=== PATIENT | male | born 1955 | race Caucasian/White ===

== ENCOUNTER → 2019-12-29 10:08 | Outpatient (BNVA) | payer OTHER, SELFPAY | PROVIDERS: Family Provider Nurse Practitioner; PCP Nurse Practitioner; Referring Provider Nurse Practitioner; Visit Provider Specialist | DX: G43.711 Chronic migraine without aura, intractable, with status migrainosus (principal); Z87.891 Personal history of nicotine dependence | CPT/HCPCS: 64615; 99203; J0585 ==

== ENCOUNTER → 2020-03-22 10:37 | Outpatient (BNVA) | payer OTHER, SELFPAY | PROVIDERS: Family Provider Nurse Practitioner; PCP Nurse Practitioner; Visit Provider Specialist | DX: G43.711 Chronic migraine without aura, intractable, with status migrainosus (principal); Z87.891 Personal history of nicotine dependence | CPT/HCPCS: 64615; J0585 ==

== ENCOUNTER → 2020-06-21 07:45 | Outpatient (BNVA) | payer OTHER, SELFPAY | PROVIDERS: Family Provider Nurse Practitioner; PCP Nurse Practitioner; Visit Provider Specialist | DX: G43.711 Chronic migraine without aura, intractable, with status migrainosus (principal) | CPT/HCPCS: 64615; J0585 ==

== ENCOUNTER → 2020-09-13 08:04 | Outpatient (BNVA) | payer OTHER, SELFPAY | PROVIDERS: PCP Nurse Practitioner; Visit Provider Specialist | DX: G43.711 Chronic migraine without aura, intractable, with status migrainosus (principal); I65.23 Occlusion and stenosis of bilateral carotid arteries; Z87.891 Personal history of nicotine dependence | CPT/HCPCS: 64615; J0585 ==

== ENCOUNTER → 2020-12-06 08:04 | Outpatient (BNVA) | payer OTHER, SELFPAY | PROVIDERS: PCP Nurse Practitioner; Visit Provider Specialist | DX: G43.711 Chronic migraine without aura, intractable, with status migrainosus (principal); I65.23 Occlusion and stenosis of bilateral carotid arteries; Z87.891 Personal history of nicotine dependence | CPT/HCPCS: 64615; 99212; 99213; J0585 ==

== ENCOUNTER 2021-08-01 19:19 | Emergency (ER) | payer OTHER, SELFPAY ==
--- NOTE | 2021-08-01 19:22 | ECG_ITS ---
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 Measurements Intervals [place] Rate: 92 P: 51 CO: 173 QRS: -3 QRSD: 89 T: 12 QT: 328 QTc: 406 Interpretive Statements SINUS RHYTHM WITH FREQUENT SUPRAVENTRICULAR PREMATURE COMPLEXES MINIMAL VOLTAGE CRITERIA FOR LVH, CONSIDER NORMAL VARIANT [MEETS CRITERIA IN ONE OF: R(aVL), S(V1), R(V5), R(V5/V6)+S(V1)] ABNORMAL RHYTHM ECG No previous ECG available for comparison Electronically Signed On 08-01-2021 20:38:20 CDT by Daina Carter M.D. [id number]
--- NOTE | 2021-08-01 19:22 | XRR_ITS ---
PROCEDURE INFORMATION: Exam: XR Chest Exam date and time: 08/01/2021 7:22 PM Age: 66 years old Clinical indication: Sternal or substernal pain; Prior surgery; Surgery type: Chest tube; Additional info: Cp TECHNIQUE: Imaging protocol: XR of the chest. Views: 1 view. Total images: 1 COMPARISON: No relevant prior studies available. FINDINGS: Lungs: No visible active interstitial or alveolar airspace disease. Pleural spaces: Unremarkable. No pleural effusion. No pneumothorax. Heart/Mediastinum: Cardiac structures and configuration within normal limits for age. Bones/joints: Unremarkable. XR/XR chest 1V portable [id number] IMPRESSION: Nonacute.
[2021-08-01 19:44] VITALS: BP 177/82; PULSE 81; RESP 20; TEMP 36.7; O2SAT 96; BMI 27.9
[2021-08-01] MEDS: aspirin 325 mg Tablet PO (20:22)
[2021-08-01 20:42] LABS: Basophils # 0.1 10^3/uL (0.0-0.1); Basophils % 0.7 %; Eosinophils # 0.1 10^3/uL (0.0-0.8); Eosinophils % 1.4 %; Hematocrit 41.8 % (42.0-52.0); Lymphocytes # 1.4 10^3/uL (0.8-4.8); Lymphocytes % 14.8 %; Mean Corpuscular HGB Conc 33.5 g/dL (30.0-36.0); Mean Corpuscular Hemoglobin 31.7 pg (28.0-34.0); Mean Corpuscular Volume 94.6 fl (80-94); Mean Platelet Volume 11.2 fL (7.4-10.4); Monocytes # 0.6 10^3/uL (0.2-0.9); Monocytes % 6.3 %; Neutrophils # 7.44 10^3/uL (1.8-7.7); Neutrophils % 76.6 %; Nucleated Red Blood Cells % 0 %; Platelet Count 190 10^3/cmm (130-400); Red Blood Count 4.42 10^6/uL (4.1-5.3); Red Cell Distribution Width 13.3 % (12.1-15.1); White Blood Count 9.7 10^3/uL (4.0-10.0)
--- NOTE | 2021-08-01 20:46 | W.ED.GENADLT ---
HPI - General Adult General: Chief complaint: Chest Pain Stated complaint: chest pain,sob, tingling left arm Time Seen by Provider: 08/01/21 19:42 History of Present Illness: HPI narrative: Patient is a 66-year-old male with history of hypertension, bilateral carotid stenosis who presents the emergency room for evaluation of persistent palpitation x2 to 3 days now shortness of breath at rest and tingling in the left arm x45 minutes. Patient says that for the last 2 days, she has had intermittent heart beat skips. In addition, since 1 hour ago she has had shortness of breath. Patient says that the shortness breath is worse with exertion. Denies any chest pain, back pain, abdominal pain, nausea/vomiting, throat pain or jaw pain. Patient said that she has some left-sided arm tingling in addition. Denies any abdominal complaints, fever/chills, nausea/vomiting, pleuritic chest pain, risk factors for VTE, complaints, melena/hematochezia at this time. Of note, patient tells me that a few years ago he underwent a cardiac evaluation which showed that he has a hole in his heart. He has not had any formal evaluation with Dr. Raul Lama. Denies any active chest pain today or previously. Onset: 2 days ago Duration:2 days Location:home Severity:moderate/severe Review of Systems Narrative: Constitutional: No fever, no chills. HEENT: No vision changes CV: No chest pain, +palpitations PULM: no cough, +dyspnea. GI: No abdominal pain, no N/V/D. : No dysuria MSKEL: No muscle pain SKIN: No new rashes, no lesions. NEURO: No headache, no focal weakness. HEME: No visible bruises PSYCH: Normal mood PFS ED PFSH: Medical History (Updated 08/01/21 @ 20:49 by Gi Michael MD) Anxiety Benign essential hypertension with target blood pressure below 140/90 Bilateral carotid artery stenosis BPH (benign prostatic hyperplasia) GERD (gastroesophageal reflux disease) Hyperlipidemia Insomnia Palpitations Surgical History H/O hernia repair Family History Other Hypertension Denies family history of Diabetes CAD (coronary artery disease) Cancer Stroke Social History Smoking and tobacco status: former smoker Quit status (tobacco): has quit using tobacco Year quit tobacco: 1999 Alcohol intake: never History of recent travel: No Physical Exam Narrative: EXAM NARRATIVE: Head: Atraumatic Eyes: PERRL, conjunctiva without injection ENT: Mucous membrane moist NECK: Supple, ROM intact LUNGS: LCTAB, no crackles/rhonchi CV: RRR ABDOMEN: Soft, nontender in all quadrants EXTREMITY: Normal ROM SKIN: No rash or erythema NEURO: Awake and alert, no focal motor deficits PSYCH: Normal mood and affect Course Vital Signs: Vital signs: Vital Signs Temperature 98.1 F 08/01/21 19:44 Pulse Rate 98 08/01/21 22:50 Respiratory Rate 79 H 08/01/21 22:50 Blood Pressure 137/79 08/01/21 22:50 Pulse Oximetry 98 08/01/21 22:50 MDM - General Adult MDM Narrative: Medical decision making narrative: 58-year-old patient with history of hypertension, carotid stenosis who presents the emergency room for evaluation of dyspnea x1 hour at rest and in setting of palpitations x2 days. On exam patient is hemodynamically stable. No focal findings. Currently chest pain-free. No Covid symptoms. EKG showing regular sinus rhythm at HT of [92]. Normal axis. No ST elevations/depressions to suggest coronary occlusion. Normal VA, QRS, QT intervals. +occasional PACs. Given age, risk factors, heart score 4, have no prior cardiac evaluation, palpitation, new onset of shortness breath, patient will be mated to hospital for ACS work-up. S/p aspirin. No focal complaints of chest pain. No dysrhythmia on phototypesetting equipment monitor. Shortly after 10:30 p.m., shortly after patient was admitted to the hospital, patient was concerned about his insurance status. Patient obtains most of his care care at the [facility] and is unsure whether insurance would cover this observation stay. Patient tells me that this time, he would like to leave AGAINST MEDICAL ADVICE. Patient electing to leave AMA. Patient counseled regarding risks of leaving including severe morbidity, brain , hypoxia, arrythmia, , chest pain, or any other unwanted consequences of leaving against medical advice today. Patient verbalizes understanding of the risks and still wishes to leave AMA. Signed AMA paperwork. Patient advised that patient is welcome to return at any time. Was instructed that patient may come back if symptoms continue to persist and that emergent adverse conditions have not fully been ruled out. Patient is A&Ox3 and has capacity and is of sound mind to make decisions. Lab Data: Labs: Lab Results 08/01/21 08/01/21 08/01/21 20:28 20:28 20:28 WBC 9.7 10^3/uL 10^3/ uL (4.0-10.0) RBC 4.42 10^6/uL 10^6 /uL (4.1-5.3) Hgb 14.0 g/dL g/dL (11.7-16.6) Hct 41.8 % L % (42.0-52.0) MCV 94.6 fl H fl (80-94) MCH 31.7 pg pg (28.0-34.0) MCHC 33.5 g/dL g/dL (30.0-36.0) RDW 13.3 % % (12.1-15.1) Plt Count 190 10^3/cmm 10^3 /cmm (130-400) MPV 11.2 fL H fL (7.4-10.4) Neut % (Auto) 76.6 % % Lymph % (Auto) 14.8 % % [place] % (Auto) 6.3 % % Eos % (Auto) 1.4 % % Baso % (Auto) 0.7 % % Neut # (Auto) 7.44 10^3/uL 10^3 /uL (1.8-7.7) Lymph # (Auto) 1.4 10^3/uL 10^3/ uL (0.8-4.8) [place] # (Auto) 0.6 10^3/uL 10^3/ uL (0.2-0.9) Eos # (Auto) 0.1 10^3/uL 10^3/ uL (0.0-0.8) Baso # (Auto) 0.1 10^3/uL 10^3/ uL (0.0-0.1) Nucleated RBC % (a uto) 0 % % Nucleated RBCs # 0.0 /100WBC /100W BC Sodium 140 mmol/L mmol/L (136-145) Potassium 4.0 mmol/L mmol/L (3.5-5.1) Chloride 106 mmol/L mmol/L (98-107) Carbon Dioxide 23 mmol/L mmol/L (22-29) Anion Gap 15.0 (5-19) BUN 17 mg/dL mg/dL (8-23) Creatinine 1.2 mg/dL mg/dL (0.7-1.2) GFR Calculation 60.2 mL/min L mL/ min (90-130) Glucose 99 mg/dL mg/dL (65-115) Calculated Osmolal ity 292 mOsm/kg mOsm/ kg (285-295) Calcium 9.1 mg/dL mg/dL (8.5-10.5) Magnesium 1.7 mg/dL mg/dL (1.7-2.3) Total Bilirubin 0.3 mg/dL mg/dL (0.15-1.2) AST 18 U/L U/L (0-40) ALT 23 U/L U/L (0-41) Alkaline Phosphata se 79 IU/L IU/L (40-130) Troponin T Baselin e 9 ng/L ng/L (0-15) Troponin T 120 Min susan Delta Troponin T NT-Pro-B Natriuret Pep 365 pg/mL H pg/mL (0-125) Total Protein 6.6 g/dL g/dL (6.6-8.7) Albumin 4.0 g/dL g/dL (3.5-5.2) Globulin 2.6 g/dL g/dL (1.3-4.6) 08/01/21 22:17 WBC RBC Hgb Hct MCV MCH MCHC RDW Plt Count MPV Neut % (Auto) Lymph % (Auto) [place] % (Auto) Eos % (Auto) Baso % (Auto) Neut # (Auto) Lymph # (Auto) [place] # (Auto) Eos # (Auto) Baso # (Auto) Nucleated RBC % (a uto) Nucleated RBCs # Sodium Potassium Chloride Carbon Dioxide Anion Gap BUN Creatinine GFR Calculation Glucose Calculated Osmolal ity Calcium Magnesium Total Bilirubin AST ALT Alkaline Phosphata se Troponin T Baselin e Troponin T 120 Min susan 8.33 ng/L ng/L (0-15) Delta Troponin T -0.67 ABS# L ABS# (0-10) NT-Pro-B Natriuret Pep Total Protein Albumin Globulin Discharge Plan Discharge Patient Disposition: Left Against Medical Advice Clinical Impression: Acute dyspnea, Palpitations Condition: Stable Prescriptions: No Action atorvastatin 40 mg tablet 40 mg PO DAILY RF: 0 omeprazole 20 mg capsule,delayed release(DR/EC) 20 mg PO DAILY RF: 0 terazosin 10 mg capsule 10 mg PO DAILY RF: 0 omega-3 fatty acids [Fish Oil Concentrate] 1,000 mg capsule 4,000 mg PO DAILY RF: 0 multivitamin Capsule 1 cap PO DAILY RF: 0 aspirin [Aspir-81] 81 mg tablet,delayed release (DR/EC) 81 mg PO DAILY RF: 0 vitamin B complex Capsule 1 cap PO DAILY RF: 0 metoprolol tartrate 100 mg tablet 100 mg PO BID Qty: 180 RF: 3 Discharge Orders: Discharge ED (Routine); Ordered 08/01/21 Ordered By: Gi Michael Referrals: Leeanna Mehta FNP [Primary Care Provider] - Discharge Diet: Advance as tolerated Discharge Activity: Resume usual activity Patient Instructions: Dyspnea (ED) Activity Restrictions/Additional Instructions: Our continuous pillowcase cutter will have you follow-up with Dr. Carter tomorrow. You would be expected to have a phone call with our continuous pillowcase cutter who will put you on the schedule. Come back to the emergency room if your symptoms worsen. Coding Level of Care Code ED Finished Goods Planner for Jermaine Hays
[2021-08-01 21:09] LABS: Troponin(5th) Baseline 9 ng/L (0-15)
[2021-08-01 21:18] LABS: Alanine Aminotransferase 23 U/L (0-41); Alkaline Phosphatase 79 IU/L (40-130); Aspartate Amino Transferase 18 U/L (0-40); Blood Urea Nitrogen 17 mg/dL (8-23); Calcium 9.1 mg/dL (8.5-10.5); Carbon Dioxide 23 mmol/L (22-29); Chloride 106 mmol/L (98-107); Creatinine Clr Calc Pharmacy 65.9837; Globulin 2.6 g/dL (1.3-4.6); Glomerular Filtration Rate 60.2 mL/min (90-130); Glucose 99 mg/dL (65-115); Magnesium 1.7 mg/dL (1.7-2.3); NT Pro B Type Natriuretic Pept 365 pg/mL (0-125); Osmolality Calculated 292 mOsm/kg (285-295); Sodium 140 mmol/L (136-145); Total Bilirubin 0.3 mg/dL (0.15-1.2); Total Protein 6.6 g/dL (6.6-8.7)
--- NOTE | 2021-08-01 21:22 | ECG_ITS ---
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
[2021-08-01 22:30] VITALS: BP 140/78; PULSE 79; RESP 18; O2SAT 97
[2021-08-01 22:42] LABS: Troponin 5 2HR 8.33 ng/L (0-15)
[2021-08-01 22:46] LABS: Troponin 5 2HR Delta -0.67 ABS# (0-10)
[2021-08-01 22:50] VITALS: BP 137/79; PULSE 98; RESP 79; O2SAT 98
--- NOTE | 2021-08-02 09:46 | DCPLANNER ---
Addendum entered by Selena Craig 11/28/21 17:27: Patient had a follow up appointment scheduled with [facility] - patient did attend appointment. Original Note: global account manager had message to schedule a follow up appointment for patient with [facility] care. global account manager called heart care, spoke with Nerissa, gave clinic patients information. A follow up appointment was scheduled for , August 08, 2021 at 11:[address] Carter. global account manager called patient and gave him the appointment information. Patient has [facility] insurance, onsite case manager sent patients information to February with [employer] [facility], so that the authorization process could be started.
== END 2021-08-01 22:50 | disposition left against medical advice (07) ==
LOC: ER 20:49 → MEDSURG 22:34
PROVIDERS: Emergency Medicine; Emergency Provider Emergency Medicine; PCP Nurse Practitioner
DX: R00.2 Palpitations (principal); R06.00 Dyspnea, unspecified; Z53.21 Procedure and treatment not carried out due to patient leaving prior to being seen by health care provider; Z79.82 Long term (current) use of aspirin; I10 Essential (primary) hypertension; E78.5 Hyperlipidemia, unspecified; Z87.891 Personal history of nicotine dependence
CPT/HCPCS: 36415; 71045; 80053; 83735; 83880; 84484; 85025; 93005; 99284

== ENCOUNTER 2022-01-10 07:17 | Outpatient (CLI) | payer OTHER, SELFPAY ==
--- NOTE | 2022-01-10 08:00 | USCV_ITS ---
Cassius Thomas Age: 66 Gender: M : 1955 Exam Date: 01/10/2022 07:34 Ordering Phys: Daina Carter MD ([email or web address]) Technologist: LISA [place] [facility] [place]: DISORDER OF ARTERIES AND ARTERIOLES Risk Factors: Previous Vascular Surgery: Right Brachial BP: / Left Brachial BP: / Right Left Velocity (cm/s) Spectral Plaque Velocity (cm/s) Spectral Plaque Syst/Diast Broadening Syst/Diast Broadening 72.80/ 13.20 Prox CCA 87.00 / 20.00 56.20/ 13.20 Mid CCA 63.40 / 15.30 43.30/ 9.60 Distal CCA 63.20 / 12.50 60.35/ 17.00 Prox ICA 43.70 / 12.50 64.20/ 19.90 Mid ICA 58.30 / 15.30 64.90/ 23.70 Distal ICA 40.20 / 13.20 33.30 ECA 52.00 1.15 ICA/CCA 0.92 Antegrade Vertebral Bi- directiona l 72.60/ 19.90 cm/s 19.60/ 20.20 cm/s Bi Subclavian Bi 104.6 58.70 0 FINDINGS Mild to moderate plaques at the bifurcations bilaterally. Intimal thickening in the common carotid arteries bilaterally. 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 Mild to moderate plaques at the bifurcations and proximal internal carotid arteries bilaterally, suggestive of less than 50% stenosis. Compared to the study from 07/20/2019, there may not be a significant change Consider CTA, to better evaluate the proximal subclavian artery on the left side Dr Daina Carter MD [facility] (Electronically Signed) Final Date: 10 January 2022 11:15 S
== END 2022-01-10 07:18 | disposition home or self-care (01) ==
PROVIDERS: PCP Nurse Practitioner; Visit Provider Internal Medicine Cardiovascular Disease
DX: I65.23 Occlusion and stenosis of bilateral carotid arteries (principal); I77.9 Disorder of arteries and arterioles, unspecified
CPT/HCPCS: 93880

== ENCOUNTER 2022-02-07 12:29 | Outpatient (CLI) | payer OTHER, SELFPAY ==
--- NOTE | 2022-02-07 13:00 | CT_ITS ---
WS: [id number] Exam: CT angio headne* [id number] Date/Time of Exam: 02/07/2022 12:41 PM Reason For Exam: subclavian arterial stenosis DLP: 536.[address] scans at [facility] use at least one of these dose optimization techniques: automated e xposure control; mA and/or kV adjustment per patient size (includes targeted exams where dose is matc hed to clinical indication); or iterative reconstruction. CT angiography of the head and neck is performed in the axial plane with sagittal and coronal reforma tted images. CT angiography of the neck. The right and left common carotid arteries are widely patent. The extracr anial internal carotid arteries are patent without significant stenosis or occlusion. There is mild c alcified plaquing at both bifurcations but no flow compromise. No sign of aneurysm or dissection. CT images of the neck show no mass or lymphadenopathy. Advanced emphysematous changes visualized in t he upper lung zones. The great vessels are patent at the level of the aortic arch. The airway is fitzgerald nt. Normal thyroid tissue. Degenerative changes of the cervical spine. CT/CT angio headne* [id number] IMPRESSION: 1. The right and left common and extracranial internal carotid arteries are pat ent without critical stenosis or occlusion. No aneurysm or dissection. CT angiography of the head. The intracranial internal carotid arteries are wide ly patent. The middle, anterior and posterior cerebral arteries are also patent . No critical stenosis or occlusion. No aneurysm. The bilateral vertebral arter ies are patent. CT images of the brain demonstrate no mass or acute bleed. The ventricles and b elaine cisterns are normal in size. The skull is intact. IMPRESSION: 1. The intracranial internal carotid arteries and major branches are patent. No critical stenosis or occlusion. No aneurysm.
[2022-02-07] MEDS: iohexol 350 mg/mL 100 mL Btl IV (13:34)
[2022-02-07 13:42] LABS: Blood Urea Nitrogen 15 mg/dL (8-23); Glomerular Filtration Rate 66.6 mL/min (90-130)
== END 2022-02-07 12:30 | disposition home or self-care (01) ==
LOC: RAD 12:30
PROVIDERS: PCP Nurse Practitioner; Visit Provider Internal Medicine Cardiovascular Disease
DX: Z01.812 Encounter for preprocedural laboratory examination (principal); I70.8 Atherosclerosis of other arteries; I77.1 Stricture of artery
CPT/HCPCS: 70496; 70498; 82565; 84520

== ENCOUNTER → 2022-05-27 11:01 | Outpatient (BNVA) | payer OTHER, SELFPAY | PROVIDERS: PCP Nurse Practitioner; Visit Provider Internal Medicine Cardiovascular Disease | DX: I48.91 Unspecified atrial fibrillation (principal); I10 Essential (primary) hypertension; I65.23 Occlusion and stenosis of bilateral carotid arteries; E78.2 Mixed hyperlipidemia; Z87.891 Personal history of nicotine dependence | CPT/HCPCS: 99214 ==

== ENCOUNTER → 2022-12-02 10:42 | Outpatient (BNVA) | payer OTHER, SELFPAY | PROVIDERS: PCP Nurse Practitioner; Visit Provider Nurse Practitioner Family | DX: I48.91 Unspecified atrial fibrillation (principal); I10 Essential (primary) hypertension; Z87.891 Personal history of nicotine dependence; Z79.01 Long term (current) use of anticoagulants | CPT/HCPCS: 99214 ==

== ENCOUNTER → 2023-06-08 14:29 | Outpatient (BNVA) | payer OTHER, SELFPAY | PROVIDERS: PCP Nurse Practitioner; Visit Provider Internal Medicine Cardiovascular Disease | DX: R07.9 Chest pain, unspecified (principal); I48.91 Unspecified atrial fibrillation; I10 Essential (primary) hypertension; I65.23 Occlusion and stenosis of bilateral carotid arteries; E78.2 Mixed hyperlipidemia; I70.8 Atherosclerosis of other arteries | CPT/HCPCS: 93005; 99214 ==

== ENCOUNTER 2023-07-27 07:10 | Observation (INO) | payer OTHER, SELFPAY ==
[2023-07-27] VITALS (14 sets, daily range): BP systolic 125–166; BP diastolic 84–110; PULSE 87–113; RESP 13–27; TEMP 36.6–37; O2SAT 94–98; BMI 26.3
--- NOTE | 2023-07-27 07:12 | XR_ITS ---
WS: [id number] XR chest 1V portable [id number] REASON FOR EXAM: cp FINDINGS: The chest is unchanged compared to 07/27/2023. Mild to moderate tortuosity and ectasia of the thoracic aorta. The heart is at the upper limits of no rmal in size. Chronic reticular interstitial lung opacities in both lower lung hurtado. Calcified granulomatous disease bilaterally. No acute pulmonary parenchymal or pleural abnormality is identified. IMPRESSION: Stable chest without acute abnormality.
--- NOTE | 2023-07-27 07:15 | ECG_ITS ---
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 Measurements Intervals [place] Rate: 112 P: 0 IN: 0 QRS: 51 QRSD: 77 T: 38 QT: 293 QTc: 400 Interpretive Statements ATRIAL FIBRILLATION WITH RAPID VENTRICULAR RESPONSE ABNORMAL RHYTHM ECG Compared to ECG 06/08/2023 14:36:40 No significant changes Electronically Signed On 07-27-2023 9:17:00 CDT by Bharti Horton M.D. [id number]
[2023-07-27 07:30] LABS: Basophils # 0.1 10^3/uL (0.0-0.1); Basophils % 0.4 %; Eosinophils # 0.1 10^3/uL (0.0-0.8); Eosinophils % 0.4 %; Hematocrit 43.1 % (37-53); Lymphocytes # 1.7 10^3/uL (0.8-4.8); Lymphocytes % 12.6 %; Mean Corpuscular HGB Conc 32.9 g/dL (30-55); Mean Corpuscular Hemoglobin 31.6 pg (27-33); Mean Corpuscular Volume 95.8 fl (82-101); Mean Platelet Volume 10.8 fL (7.4-10.4); Monocytes # 0.5 10^3/uL (0.2-0.9); Monocytes % 3.9 %; Neutrophils # 11.25 10^3/uL (1.8-7.7); Neutrophils % 82.2 %; Nucleated Red Blood Cells % 0 %; Platelet Count 201 10^3/cmm (157-399); Red Cell Distribution Width 14.2 % (12.1-15.1)
--- NOTE | 2023-07-27 07:32 | ED_ITS ---
HPI - SOB/Dyspnea General: Chief Complaint: Shortness of Breath/Dyspnea Stated Complaint: sob, chest tightness Time Seen by Provider: 07/27/23 07:12 Source: patient Mode of arrival: ambulatory Limitations: no limitations History of Present Illness: HPI Narrative: 68-year-old male he does have a history of A-fib he states he woke up melanite having some pressure in his chest along with shortness of breath he is in A-fib with RVR here with heart rates in the 110s he states he takes metoprolol did take it this morning. States he gets the symptoms at times when his heart rate spikes up. States his pain is actually improved he denies any cough or fever. Associated symptoms: Reports chest pain and palpitations; Deny abdominal pain, fever(s), nausea or vomiting Review of Systems Const: Denies: fever(s) or chills ENMT: Denies: throat pain or dental pain Card: Reports: chest pain, palpitations and irregular heart rhythm Resp: Reports: dyspnea GI: Denies: abdominal pain, nausea, vomiting or diarrhea : Denies: dysuria Musc: Denies: neck pain or back pain Skin/Breast: Denies: rash Neuro: Denies: headache(s) PFSH ED PFSH: Medical History (Updated 07/27/23 @ 09:08 by Jalyn Broussard MD) Anxiety Atrial fibrillation Benign essential hypertension with target blood pressure below 140/90 Bilateral carotid artery stenosis BPH (benign prostatic hyperplasia) GERD (gastroesophageal reflux disease) Hyperlipidemia Insomnia Palpitations Surgical History H/O hernia repair Family History Sister Cancer Other Hypertension Denies family history of Diabetes CAD (coronary artery disease) Clotting disorder Dementia Chronic kidney disease (CKD) Suicide Anesthesia complication Bleeding disorder Lung disease Stroke Social History (Updated 07/27/23 @ 08:55 by Cameron Rosado MD) Smoking and tobacco status: former smoker Quit status (tobacco): has quit using tobacco Year quit tobacco: 1999 Alcohol intake: never Substance/Drug Use: current Substance/Drug use type: Marijuana Physical Exam Const: COMMON NORMALS: patient oriented x3 HENMT: COMMON NORMALS: normocephalic and atraumatic HEAD & SCALP: normocephalic and atraumatic Neck/C-Spine: COMMON NORMALS: full ROM and supple Chest: COMMONS NORMALS: normal inspection of the chest and normal palpation of entire chest wall Resp: COMMON NORMALS: normal respiratory effort, No retractions, No use of accessory muscles and clear to auscultation bilaterally AUSCULTATION: clear to auscultation bilaterally Cardio: COMMON NORMALS: No murmurs present (Cardio) RATE: tachycardic RHYTHM: abnormal rhythm irregularly irregular GI: COMMON NORMALS: Normal to inspection, nondistended, normoactive bowel sounds present, Soft to palpation, non-tender and no masses PALPATION: Yes Soft to palpation Extremity: COMMON NORMALS: normal to inspection and full ROM Neuro: COMMON NORMALS: patient oriented x3, moves all extremities and no focal motor deficits Psych: COMMON NORMALS: mental status grossly normal, Normal thought process present and cooperative THOUGHT PROCESS: Normal thought process present Skin: COMMON NORMALS: no rashes or lesions noted and no wounds GENERAL SKIN EXAM: no rashes or lesions noted Course Vital Signs: Vital signs: Vital Signs Temperature 97.8 F 07/27/23 07:17 Pulse Rate 112 H 07/27/23 08:45 Respiratory Rate 17 07/27/23 08:30 Blood Pressure 157/101 07/27/23 08:45 Pulse Oximetry 95 07/27/23 08:30 Oxygen Delivery Me thod Room Air 07/27/23 08:08 MDM - SOB/Dyspnea Medical Decision Making Patient presents with chest pain and also A-fib with RVR his heart rate has improved after IV Cardizem but still having some heart rates over 100 BNP is mildly elevated his troponin here is normal I spoke to hospitalist will admit for observation we will start Cardizem p.o. at this time. Medical Records I reviewed the patient's medical records. Lab Data I reviewed the patient's lab results. 07/27/23 07:22 07/27/23 07:22 Labs/Radiology: Laboratory Results WBC 13.70 10^3/uL (3.29-11.43) H 07/27/23 07:22 RBC 4.50 10^6/uL (3.85-5.65) 07/27/23 07:22 Hgb 14.20 g/dL (11.27-16.99) 07/27/23 07:22 Hct 43.1 % (37-53) 07/27/23 07:22 MCV 95.8 fl (82-101) 07/27/23 07:22 MCH 31.6 pg (27-33) 07/27/23 07:22 MCHC 32.9 g/dL (30-55) 07/27/23 07:22 RDW 14.2 % (12.1-15.1) 07/27/23 07:22 Plt Count 201 10^3/cmm (157-399) 07/27/23 07:22 MPV 10.8 fL (7.4-10.4) H 07/27/23 07:22 Neut % (Auto) 82.2 % 07/27/23 07:22 Lymph % (Auto) 12.6 % 07/27/23 07:22 [place] % (Auto) 3.9 % 07/27/23 07:22 Eos % (Auto) 0.4 % 07/27/23 07:22 Baso % (Auto) 0.4 % 07/27/23 07:22 Neut # (Auto) 11.25 10^3/uL (1.8-7.7) H 07/27/23 07:22 Lymph # (Auto) 1.7 10^3/uL (0.8-4.8) 07/27/23 07:22 [place] # (Auto) 0.5 10^3/uL (0.2-0.9) 07/27/23 07:22 Eos # (Auto) 0.1 10^3/uL (0.0-0.8) 07/27/23 07:22 Baso # (Auto) 0.1 10^3/uL (0.0-0.1) 07/27/23 07:22 Nucleated RBC % (auto) 0 % 07/27/23 07: Nucleated RBCs # 0.0 /100WBC 07/27/23 07:22 PT 16.70 SECONDS (12.1-14.9) H 07/27/23 07:22 INR 1.30 (0.8-1.2) H 07/27/23 07:22 D-Dimer 0.42 ug/mLFEU (0-0.59) 07/27/23 07:22 Sodium 142 mmol/L (136-145) 07/27/23 07:22 Potassium 4.0 mmol/L (3.5-5.1) 07/27/23 07:22 Chloride 107 mmol/L (98-107) 07/27/23 07:22 Carbon Dioxide 23 mmol/L (22-29) 07/27/23 07:22 Anion Gap 16.0 (5-19) 07/27/23 07:22 BUN 13 mg/dL (8-23) 07/27/23 07:22 Creatinine 0.9 mg/dL (0.7-1.2) 07/27/23 07:22 GFR Calculation 83.4 mL/min (90-130) L 07/27/23 07:22 Glucose 159 mg/dL (65-115) H 07/27/23 07:22 Calculated Osmolality 297 mOsm/kg (285-295) H 07/27/23 07:22 Calcium 9.3 mg/dL (8.5-10.5) 07/27/23 07:22 Total Bilirubin 0.7 mg/dL (0.15-1.2) 07/27/23 07:22 AST 37 U/L (0-40) 07/27/23 07:22 ALT 56 U/L (0-41) H 07/27/23 07:22 Alkaline Phosphatase 106 U/L (40-130) 07/27/23 07:22 Troponin T Baseline 11 ng/L (0-15) 07/27/23 07:22 NT-Pro-B Natriuret Pep 1996 pg/mL (0-125) H 07/27/23 07:22 Total Protein 6.8 g/dL (6.6-8.7) 07/27/23 07:22 Albumin 4.6 g/dL (3.5-5.2) 07/27/23 07:22 Globulin 2.2 g/dL (1.3-4.6) 07/27/23 07:22 All radiology interpretation(s) finalized by discharge EKG Data EKG 1: I personally reviewed and interpreted this EKG as follows: EKG Interpretation Date: 07/27/23 EKG interpretation time: 07:15 Interpretation: afib hr [address] or t wave abnormalities qrs 77 qtc 359 Discharge Plan Discharge Patient Disposition: Placed in Observation Clinical Impression: Atrial fibrillation with rapid ventricular response, Chest pain Condition: Stable Prescriptions: No Action omeprazole 20 mg capsule,delayed release(DR/EC) 20 mg PO QAM tamsulosin 0.4 mg capsule 0.8 mg PO BEDTIME hydralazine 100 mg tablet 100 mg PO BID Qty: 180 3RF Eliquis 5 mg tablet 5 mg PO BID Qty: 180 3RF multivitamin Tablet 1 tab PO QAM Tylenol Ex Str Rapid Release 500 mg Tablet 500 mg PO BID vitamin B complex Tablet 1 tab PO QAM metoprolol tartrate 100 mg tablet See Rx Instructions .ROUTE .COMPLEX Rx Instructions: 150mg (1&1/2 tab) po in the am and 100mg (1 tab) po bedtime Lipitor 80 mg Tablet 40 mg PO BEDTIME Referrals: Leeanna Mehta FNP [Primary Care Provider] - Coding Level of Care Code ED Car Repairer Helper for Jermaine Hays
[2023-07-27 07:49] LABS: D Dimer 0.42 ug/mLFEU (0-0.59)
[2023-07-27 07:51] LABS: Troponin(5th) Baseline 11 ng/L (0-15)
[2023-07-27] MEDS: dilTIAZem 5 mg/mL SDV 5 mL 15 MG IVP (07:52)
[2023-07-27 08:01] LABS: Alanine Aminotransferase 56 U/L (0-41); Albumin Level 4.6 g/dL (3.5-5.2); Alkaline Phosphatase 106 U/L (40-130); Aspartate Amino Transferase 37 U/L (0-40); Blood Urea Nitrogen 13 mg/dL (8-23); Calcium 9.3 mg/dL (8.5-10.5); Carbon Dioxide 23 mmol/L (22-29); Chloride 107 mmol/L (98-107); Globulin 2.2 g/dL (1.3-4.6); Glomerular Filtration Rate 83.4 mL/min (90-130); Glucose 159 mg/dL (65-115); NT Pro B Type Natriuretic Pept 1996 pg/mL (0-125); Osmolality Calculated 297 mOsm/kg (285-295); Sodium 142 mmol/L (136-145); Total Bilirubin 0.7 mg/dL (0.15-1.2); Total Protein 6.8 g/dL (6.6-8.7)
--- NOTE | 2023-07-27 08:01 | PC.PHAR ---
Addendum entered by Zunilda Kelsey 07/27/23 10:24: [facility] 80[facility] take 40mg daily Original Note: pt states he takes care of his own medications-pt states [facility]-pt verified all his medications except wasnt completely sure on the lipitor states 40mg sounds right-waiting for [facility] to fax med list back to verify-
[2023-07-27] MEDS: dilTIAZem 30 mg Tablet PO ×3 (08:20→16:48)
--- NOTE | 2023-07-27 08:45 | P.HP_ITS ---
Providers/Chief Complaint Admitting Physician: Cameron Rosado MD Primary Care Provider: KAM Murillo Chief Complaint: sob, chest tightness History of Present Illness Cassius Thomas is a 68 year old male who presented to the hospital with complaints of chest discomfort, shortness of breath starting last night. He reports it is gone on for hours, and is the same as the discomfort he has had when his atrial fibrillation gets out of control. He reports he took his metoprolol, 150 mg this morning is has his usual but heart rate was still over 110. He reports he frequently runs high, around 100-110 even when he feels okay. He denies ever running low. He reports no history of coronary disease, although he does have history of subclavian stenosis on the left. No recent fever, cough, other illness. Reports he has been on metoprolol for years secondary to his atrial fibrillation. Discomfort is described as pressure/palpitations mid chest without radiation. Review of Systems General: Reports: 10 or more systems reviewed and unremarkable except in HPI and below Card: Reports: chest pain and palpitations; Denies: edema or swelling of feet/ankles Resp: Reports: dyspnea; Denies: productive cough or non-productive cough GI: Denies: abdominal pain, nausea, vomiting, hematochezia or melena Medications/Allergies Home Medications Medication Instructions Recorded Confirmed Last Taken Type omeprazole 20 mg capsule,delayed 20 mg PO QAM 12/29/19 07/27/23 07/27/23 History release apixaban 5 mg tablet (Eliquis) 5 mg PO BID New onset Afib #180 05/05/22 07/27/23 07/27/23 03:00 Rx tabs tamsulosin 0.4 mg capsule 0.8 mg PO BEDTIME 05/27/22 07/27/23 07/26/23 History hydralazine 100 mg tablet 100 mg PO BID #180 tabs 06/08/23 07/27/23 07/27/23 03:00 Rx acetaminophen 500 mg tablet 500 mg PO BID 07/27/23 07/27/23 07/27/23 History atorvastatin 80 mg tablet (Lipitor) 40 mg PO BEDTIME 07/27/23 07/27/23 07/26/23 History metoprolol tartrate 100 mg tablet See Rx Instructions .Route .COMPLEX 09/07/27/23 07/27/23 03:00 History multivitamin 1 tab PO QAM 07/27/23 07/27/23 07/27/23 03:00 History vitamin B complex 1 tab PO QAM 07/27/23 07/27/23 07/27/23 History Allergies Allergy/AdvReac Type Severity Reaction Status Date / Time amlodipine Allergy Severe ALGY-Swell Verified 07/27/23 07:51 Lip/Tongue/Throat lisinopril Allergy Severe ALGY-Swell Verified 07/27/23 07:51 Lip/Tongue/Throat PFSH Acute PFSH: Medical History (Updated 07/27/23 @ 09:01 by Cameron Rosado MD) Anxiety Atrial fibrillation Benign essential hypertension with target blood pressure below 140/90 Bilateral carotid artery stenosis BPH (benign prostatic hyperplasia) GERD (gastroesophageal reflux disease) Hyperlipidemia Insomnia Palpitations Surgical History H/O hernia repair Family History Sister Cancer Other Hypertension Denies family history of Diabetes CAD (coronary artery disease) Clotting disorder Dementia Chronic kidney disease (CKD) Suicide Anesthesia complication Bleeding disorder Lung disease Stroke Social History (Updated 07/27/23 @ 08:55 by Cameron Rosado MD) Smoking and tobacco status: former smoker Quit status (tobacco): has quit using tobacco Year quit tobacco: 1999 Alcohol intake: never Substance/Drug Use: current Substance/Drug use type: Marijuana Vitals/I&O/Wt Last Vital Signs Temp 97.8 F 07/27/23 07:17 Pulse 107 H 07/27/23 08:15 Resp 18 07/27/23 08:15 BP 125/94 07/27/23 08:15 Pulse Ox 95 07/27/23 08:15 O2 Del Method Room Air 07/27/23 08:08 Weight last 48 hrs Weight 85.729 kg Physical Exam Narrative: General exam is white male, no distress, heart rate currently 100-1 10 after Cardizem IV reporting he has no discomfort HEENT: Atraumatic and normocephalic. Oropharynx clear Neck is supple no lymphadenopathy thyromegaly Cardiovascular irregular, irregular with accelerated rate Lungs clear no wheezing or crackles Abdomen soft nontender positive bowel sounds. No obvious organomegaly exam was deferred Extremities no cyanosis clubbing or edema, cap refill brisk Skin no rash Neuro no obvious focal deficits Data 07/27/23 07:22 07/27/23 07:22 Other Labs: INR 1.3, dimer 0.42 LFTs normal with exception of ALT 56 BNP 1995 Initial troponin 11, repeat pending Albumin and calcium normal I have ordered a TSH and magnesium level Chest x-ray which I personally reviewed demonstrates no infiltrate, borderline cardiomegaly EKG reviewed by me demonstrates atrial fibrillation with rapid ventricular rate, normal axis, rate is approximately 110, no ST elevation or significant conc erning changes. A&P Assessment and plan (1) Atrial fibrillation with rapid ventricular response: Patient presents with atrial fibrillation with rapid ventricular rate, as well as chest discomfort and shortness of breath. BNP is elevated suggesting rate had been high enough to likely be causing some pulmonary congestion. He reports he is typically in atrial fibrillation, that is around 100-110 resting on metoprolol. He is anticoagulated with Lovenox chronically. He received Cardizem IV in the emergency department. At this point we will continue his metoprolol at his current dosing, and add diltiazem 30 mg every 6 hours. Increase dosing as needed. If blood pressure trends down consider reducing hydralazine that he takes for hypertension. In case any procedures are needed during the hospital we will discontinue his Eliquis, and change him to Lovenox for the short-term. Check echocardiogram Check magnesium and TSH Atrial fibrillation with rapid ventricular rate is an acute health condition that can lead to threat to life if not treated, which has persisted after emergency department treatment is a serious health condition, posing risks to his wellbeing needing observation in the hospital currently. I also asked for him to reduce his caffeine intake (2) Elevated brain natriuretic peptide (BNP) level: See above (3) Chest pain: I believe this is secondary to his atrial fibrillation. Trend troponins. Check echocardiogram to look for any wall motion abnormalities. If troponins become significantly elevated, wall motion abnormalities are noted could consider nuclear stress testing. (4) Benign essential hypertension with target blood pressure below 140/90: Continue metoprolol and hydralazine for now. With the addition of diltiazem, if blood pressures become soft will consider lowering hydralazine Plan Other medical problems as outlined in past medical history Full code Lovenox will suffice for DVT prophylaxis Attestations Medical Necessity Statement*: Will need less than 2 midnight stay for evaluation and treatment of atrial fibrillation with rapid ventricular rate. Diagnoses Atrial fibrillation with rapid ventricular response I48.91 Elevated brain natriuretic peptide (BNP) level R79.89 Chest pain R07.9 Benign essential hypertension with target blood pressure below 140/90 I10 Time Spent (min) 49
--- NOTE | 2023-07-27 09:12 | ECG_ITS ---
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 Measurements Intervals [place] Rate: 97 P: 0 [place]: 0 QRS: 47 QRSD: 91 T: 30 QT: 337 QTc: 428 Interpretive Statements ATRIAL FIBRILLATION WITH ABERRANT CONDUCTION OR VENTRICULAR PREMATURE COMPLEXES ABNORMAL RHYTHM ECG Compared to ECG 07/27/2023 07:15:26 Ventricular premature complex(es) now present Aberrant conduction of supraventricular beat(s) now present Electronically Signed On 07-27-2023 21:38:13 CDT by Bharti Horton M.D. [id number]
[2023-07-27 09:37] LABS: Estmated Average Glucose 128; Hemoglobin A1C 6.1 % (4.0-6.0)
[2023-07-27 09:46] LABS: Troponin 5 2HR 8.88 ng/L (0-15)
[2023-07-27 09:47] LABS: Troponin 5 2HR Delta -2.12 ABS# (0-10)
[2023-07-27 09:59] LABS: Magnesium 1.6 mg/dL (1.7-2.3); Thyroid Stimulating Hormone 1.46 uIU/mL (0.27-4.20)
--- NOTE | 2023-07-27 11:05 | USCV_ITS ---
Cassius Thomas Age: 68 Gender: M : 1955 Exam Date: 07/27/2023 13:57 Ordering Phys: Cameron Rosado MD Technologist: CT Exam Location: [facility] [place]_ Indication: afib BP: 149 / 108 HR: 127 Rhythm: Atrial fibrillation Technical Quality: Adequate MEASUREMENTS (Male / Female) Normal Values 2D ECHO LV Chamber Size 4.9 cm RV Chamber Size 4.4 cm LVOT Diameter 2.2 cm LV Ejection Fraction MOD 2C 48.0 % LV Ejection Fraction 2C AL 47.9 % LA Diameter 4.9 cm LA Width 4.6 cm LA Height 5.6 cm RA Width 4.3 cm RA Height 5.9 cm Aorta at Sinotubular Diameter 2.6 cm IVC Diameter 2.0 cm M-MODE Aortic Annulus Diameter 4.2 cm LA Ao Ratio MM 1.2 MV E Point Septal Separation 0.2 cm DOPPLER AV Peak Velocity 104.0 cm/s LVOT Peak Velocity 76.0 cm/s AV Area Cont Eq vti 2.6 cm squared AV Area Cont Eq pk 2.7 cm squared MV Area PHT 4.6 cm squared Mitral E to A Ratio 3.2 MV E' Velocity 64.5 cm/s Mitral E to MV E' Ratio 9.9 Mitral E to LV E' Lateral Ratio 8.4 Mitral E to LV E' Septal Ratio 12.3 TR Peak Velocity 149.0 cm/s TR Peak Gradient 8.9 mmHg TV Peak E Velocity 73.0 cm/s Right Atrial Pressure 3.0 mmHg Pulmonary Artery Systolic Pressu 11.9 mmHg PV Peak Velocity 98.0 cm/s FINDINGS Left Ventricle Left ventricle is normal size. LV systolic function is normal with EF of 55-60%. No regional wall motion abnormalities are seen. Diastolic function is indeterminate because of atrial fibrillation. Right Ventricle The right ventricle is normal in size and function. Right Atrium The right atrium is normal in size. Left Atrium Dilated Mitral Valve Mild mitral annular calcification seen. Mild mitral regurgitation. Aortic Valve Aortic valve is mildly thickened. Mild to moderate aortic regurgitation. No significant stenosis. Tricuspid Valve Mild tricuspid regurgitation. Insufficient TR jet to calculate RVSP. Pulmonic Valve Mild pulmonic regurgitation. Pericardium Normal pericardium without effusion. Aorta Normal ascending aorta dimension. IVC Dilated CONCLUSIONS LV systolic function is normal with EF 55 to 60% Diastolic function is indeterminate because of atrial fibrillation. Left atrial dilation Mild mitral regurgitation Mild to moderate aortic regurgitation Mild tricuspid regurgitation Mild pulmonic regurgitation. IVC is dilated No comparison studies are available. Mohsen Avila MD (Electronically Signed) Final Date: 27 July 2023 18:50 S
[2023-07-27] MEDS: magnesium sulfate premix 2 GM/50 ML PIGGYBACK IV (12:54)
[2023-07-27 14:14] LABS: Troponin 5 6HR 10.37 ng/L (0-15); Troponin 5 6HR Delta -0.63 ng/L (0-12)
--- NOTE | 2023-07-27 14:51 | ECG_ITS ---
[facility] Test Date: 2023-07-27 Pat Name: Cassius Thomas Department: Room: 103 Gender: Male Service Member: : 1955 Requested By: Jalyn Broussard Order Number: [id number] Donis MD: Bharti Horton M.D. Measurements Intervals [place] Rate: 91 P: 0 MT: 0 QRS: 46 QRSD: 90 T: 30 QT: 350 QTc: 432 Interpretive Statements ATRIAL FIBRILLATION ABNORMAL RHYTHM ECG Compared to ECG 07/27/2023 09:19:04 Ventricular premature complex(es) no longer present Aberrant conduction of supraventricular beat(s) no longer present Electronically Signed On 07-27-2023 21:35:17 CDT by Bharti Horton M.D. [id number]
[2023-07-27] MEDS: hyDRALAzine 50 mg Tablet 100 MG PO (18:13)
[2023-07-27] MEDS: tamsulosin 0.4 mg Capsule 0.8 MG PO (20:20)
[2023-07-27] MEDS: dilTIAZem 60 mg Tablet PO (20:20)
[2023-07-27] MEDS: metoprolol tartrate 50 mg Tablet 100 MG PO (20:21)
[2023-07-27] MEDS: atorvastatin 40 mg Tablet PO (20:21)
[2023-07-27] MEDS: enoxaparin 80 mg/0.8 mL Syringe SUBCUT (20:21)
[2023-07-28] VITALS: BP 147/90; PULSE 87; RESP 18; TEMP 36.6; O2SAT 92
[2023-07-28] MEDS: dilTIAZem 60 mg Tablet PO (02:18)
[2023-07-28 04:00] VITALS: BP 120/88; PULSE 106; RESP 16; TEMP 36.7; O2SAT 97
[2023-07-28 04:31] VITALS: PULSE 87
[2023-07-28 04:38] LABS: Basophils # 0.1 10^3/uL (0.0-0.1); Basophils % 0.6 %; Eosinophils # 0.1 10^3/uL (0.0-0.8); Eosinophils % 0.7 %; Hematocrit 39.4 % (37-53); Lymphocytes # 1.4 10^3/uL (0.8-4.8); Lymphocytes % 13.1 %; Mean Corpuscular HGB Conc 33.2 g/dL (30-55); Mean Corpuscular Hemoglobin 31.6 pg (27-33); Mean Corpuscular Volume 94.9 fl (82-101); Mean Platelet Volume 11.4 fL (7.4-10.4); Monocytes # 0.7 10^3/uL (0.2-0.9); Monocytes % 6.3 %; Neutrophils # 8.47 10^3/uL (1.8-7.7); Nucleated Red Blood Cells % 0 %; Platelet Count 179 10^3/cmm (157-399); Red Blood Count 4.15 10^6/uL (3.85-5.65); Red Cell Distribution Width 14.1 % (12.1-15.1)
[2023-07-28 05:05] LABS: Alanine Aminotransferase 39 U/L (0-41); Albumin Level 3.9 g/dL (3.5-5.2); Alkaline Phosphatase 93 U/L (40-130); Anion Gap 14.7 (5-19); Aspartate Amino Transferase 25 U/L (0-40); Blood Urea Nitrogen 10 mg/dL (8-23); Calcium 8.5 mg/dL (8.5-10.5); Carbon Dioxide 23 mmol/L (22-29); Chloride 109 mmol/L (98-107); Creatinine Clr Calc Pharmacy 96.5801; Globulin 2.2 g/dL (1.3-4.6); Glomerular Filtration Rate 95.6 mL/min (90-130); Glucose 117 mg/dL (65-115); Osmolality Calculated 296 mOsm/kg (285-295); Potassium 3.7 mmol/L (3.5-5.1); Sodium 143 mmol/L (136-145); Total Protein 6.1 g/dL (6.6-8.7)
[2023-07-28 05:07] LABS: Magnesium 1.8 mg/dL (1.7-2.3)
[2023-07-28] MEDS: pantoprazole DR 40 mg Tablet PO (05:08)
[2023-07-28 08:00] VITALS: BP 131/93; PULSE 114; RESP 15; TEMP 36.7; O2SAT 95
--- NOTE | 2023-07-28 08:11 | PM.DCS ---
Discharge Providers Date of Admission: 07/27/23 11:05 Date of Discharge: July 28, 2023 Attending Provider at Admission: Cameron Rosado MD Attending Provider at Discharge: Cameron Rosado MD Primary Care Provider: KAM Murillo Diagnoses at Discharge Discharge Diagnosis (1) Atrial fibrillation with rapid ventricular response: Status: Acute (2) Elevated brain natriuretic peptide (BNP) level: Status: Acute (3) Chest pain: Status: Acute (4) Benign essential hypertension with target blood pressure below 140/90: Status: Acute Reason for Visit Reason for Visit: sob, chest tightness Hospital Course Hospital Course Cassius is a 68-year-old white male who presented to the hospital with A-fib with RVR, palpitations and chest discomfort. After getting some Cardizem IV in the emergency department, when heart rate decreased, chest discomfort and palpitations went away. There was never any troponin elevation. An echocardiogram was obtained, which demonstrated preserved EF, no wall motion abnormality, mild to moderate aortic regurgitation. Serial troponins were all negative. EKG demonstrated no concerning changes. He was placed on Cardizem short acting 30 mg every 6 hours, that was increased to 60 mg every 6 hours. With this he achieved his resting heart rate of 70-80, atrial fibrillation. He was converted to extended release Cardizem, and discharged on July 28. He was asymptomatic with his atrial fibrillation at that time. He was given an opportunity to ask questions, and agreed with the plan. 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 TSH and electrolytes was normal. Magnesium slightly low and was supplemented during his hospital stay. Physical Exam Narrative: General exam no distress Neck is supple Cardiovascular irregular, irregular Lungs clear Abdomen is soft Extremities no cyanosis clubbing or edema Discharge Data Studies Completed and Pending Completed Studies During Hospitalization Category Date Time Status XR chest 1V portable [id number] Stat Exams 07/27/23 07:12 Completed CV. echo complete* [id number] Routine Ultrasound 07/27/23 11:05 Completed Laboratory Results WBC 10.70 10^3/uL (3.29-11.43) 07/28/23 04:03 RBC 4.15 10^6/uL (3.85-5.65) 07/28/23 04:03 Hgb 13.10 g/dL (11.27-16.99) 07/28/23 04:03 Hct 39.4 % (37-53) 07/28/23 04:03 MCV 94.9 fl (82-101) 07/28/23 04:03 MCH 31.6 pg (27-33) 07/28/23 04:03 MCHC 33.2 g/dL (30-55) 07/28/23 04:03 RDW 14.1 % (12.1-15.1) 07/28/23 04:03 Plt Count 179 10^3/cmm (157-399) 07/28/23 04:03 MPV 11.4 fL (7.4-10.4) H 07/28/23 04:03 Neut % (Auto) 79.0 % 07/28/23 04:03 Lymph % (Auto) 13.1 % 07/28/23 04:03 [place] % (Auto) 6.3 % 07/28/23 04:03 Eos % (Auto) 0.7 % 07/28/23 04:03 Baso % (Auto) 0.6 % 07/28/23 04:03 Neut # (Auto) 8.47 10^3/uL (1.8-7.7) H 07/28/23 04:03 Lymph # (Auto) 1.4 10^3/uL (0.8-4.8) 07/28/23 04:03 [place] # (Auto) 0.7 10^3/uL (0.2-0.9) 07/28/23 04:03 Eos # (Auto) 0.1 10^3/uL (0.0-0.8) 07/28/23 04:03 Baso # (Auto) 0.1 10^3/uL (0.0-0.1) 07/28/23 04:03 Nucleated RBC % (auto) 0 % 07/28/23 04:03 Nucleated RBCs # 0.0 /100WBC 07/28/23 04:03 PT 16.70 SECONDS (12.1-14.9) H 07/27/23 07:22 INR 1.30 (0.8-1.2) H 07/27/23 07:22 D-Dimer 0.42 ug/mLFEU (0-0.59) 07/27/23 07:22 Sodium 143 mmol/L (136-145) 07/28/23 04:03 Potassium 3.7 mmol/L (3.5-5.1) 07/28/23 04:03 Chloride 109 mmol/L (98-107) H 07/28/23 04:03 Carbon Dioxide 23 mmol/L (22-29) 07/28/23 04:03 Anion Gap 14.7 (5-19) 07/28/23 04:03 BUN 10 mg/dL (8-23) 07/28/23 04:03 Creatinine 0.8 mg/dL (0.7-1.2) 07/28/23 04:03 GFR Calculation 95.6 mL/min (90-130) 07/28/23 04:03 Glucose 117 mg/dL (65-115) H 07/28/23 04:03 Estimat Average Glucose 128 07/27/23 07:22 Hemoglobin A1c 6.1 % (4.0-6.0) H 07/27/23 07:22 Calculated Osmolality 296 mOsm/kg (285-295) H 07/28/23 04:03 Calcium 8.5 mg/dL (8.5-10.5) 07/28/23 04:03 Magnesium 1.8 mg/dL (1.7-2.3) 07/28/23 04:03 Total Bilirubin 1.0 mg/dL (0.15-1.2) 07/28/23 04:03 AST 25 U/L (0-40) 07/28/23 04:03 ALT 39 U/L (0-41) 07/28/23 04:03 Alkaline Phosphatase 93 U/L (40-130) 07/28/23 04:03 Troponin T Baseline 11 ng/L (0-15) 07/27/23 07:22 Troponin T 120 Minute 8.88 ng/L (0-15) 07/27/23 09:14 Delta Troponin T -2.12 ABS# (0-10) L 07/27/23 09:14 Troponin T Hi Sens 6Hr 10.37 ng/L (0-15) 07/27/23 13:15 Troponin T Hi Sens 6Hr Delta -0.63 ng/L (0-12) L 07/27/23 13:15 NT-Pro-B Natriuret Pep 1996 pg/mL (0-125) H 07/27/23 07:22 Total Protein 6.1 g/dL (6.6-8.7) L 07/28/23 04:03 Albumin 3.9 g/dL (3.5-5.2) 07/28/23 04:03 Globulin 2.2 g/dL (1.3-4.6) 07/28/23 04:03 TSH 1.46 uIU/mL (0.27-4.20) 07/27/23 07:22 Vitals Last Vital Signs Temp 98.1 F 07/28/23 08:00 Pulse 114 H 07/28/23 08:00 Resp 15 07/28/23 08:00 BP 131/93 07/28/23 08:00 Pulse Ox 95 07/28/23 08:00 O2 Del Method Room Air 07/28/23 08:00 Discharge Plan Discharge Patient Disposition: Home Condition: Stable Prescriptions: New diltiazem HCl 240 mg Capsule,Extended Release 24hr 240 mg PO DAILY Qty: 30 0RF Continued omeprazole 20 mg capsule,delayed release(DR/EC) 20 mg PO QAM tamsulosin 0.4 mg capsule 0.8 mg PO BEDTIME hydralazine 100 mg tablet 100 mg PO BID Qty: 180 3RF Eliquis 5 mg tablet 5 mg PO BID Qty: 180 3RF multivitamin Tablet 1 tab PO QAM Tylenol Ex Str Rapid Release 500 mg Tablet 500 mg PO BID vitamin B complex Tablet 1 tab PO QAM metoprolol tartrate 100 mg tablet See Rx Instructions .ROUTE .COMPLEX Rx Instructions: 150mg (1&1/2 tab) po in the am and 100mg (1 tab) po bedtime Lipitor 80 mg Tablet 40 mg PO BEDTIME Discharge Orders: Discharge Order (Routine); Ordered 07/28/23 Ordered By: Cameron Rosado Referrals: Daina Carter MD [Physician] - 2 weeks Leeanna Mehta FNP [Primary Care Provider] - 4-7 days Discharge Diet: Cardiac Discharge Activity: Increase activity as tolerated Patient Instructions: Opioid Safety Activity Restrictions/Additional Instructions: Take all medicine as prescribed. Follow-up with Dr. Carter 2 weeks, [facility] 3 to 5 days Keep track of your blood pressure and pulse and report that your primary care provider Return for any concerns Discharge Attestations Time Spent in Discharge Care*: greater than 30 min Quality Metrics Clinical Quality Measures [ No reported AMI, CVA or VTE this stay] Coding Level of Care Code 51403 Total time (in minutes) for Discharge: 35 Diagnoses Atrial fibrillation with rapid ventricular response I48.91 Elevated brain natriuretic peptide (BNP) level R79.89 Chest pain R07.9 Benign essential hypertension with target blood pressure below 140/90 I10
[2023-07-28] MEDS: dilTIAZem ER (24HR) 240 mg Capsule PO (08:18)
[2023-07-28] MEDS: hyDRALAzine 50 mg Tablet 100 MG PO (08:18)
[2023-07-28] MEDS: apixaban 5 mg Tablet PO (08:18)
[2023-07-28] MEDS: metoprolol tartrate 50 mg Tablet 150 MG PO (08:19)
--- NOTE | 2023-07-28 09:27 | PC.CHAP ---
Pastoral Care Encounter/Spiritual Assessment Type of Contact [] Declined 3d designer visit [] Patient/Family/Request visit [] Outpatient visit [] Follow-up visit [] Physician referral [] Code/Alert [x] Routine visit [] Staff referral [] Actively dying [] Patient sleeping [] Family support [] [] Out of room [] Palliative care [] [] Receiving care in room [] Pre-surgical visit [] Trauma [] Long length of stay [] ICU visit [] Other: Relational/Emotional Strength [x] Patient feels connected with others/family/visitors/staff [] Distress [] Loneliness/isolation [] Abandonment Spirituality of Patient [x] Person of [place] [] Attends Confucianist of their [place] [] Believes in Prayer [] Reads Bible or Oriental Orthodox materials [] There are Spiritual issues to be addressed 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 Interventions [x] Prayer [] Active listening [] Non-anxious presence [x] Spiritual/emotional support [] Crisis/trauma care [] Spiritual counseling [] Bereavement support [] Provided bereavement packet [] Provided Bible/devotional materials [] Provided toy/stuffed animal, coloring book to patient or family member [] Provided Communion [] Anointing/[place] [] Salvation [x] Completed spiritual assessment [] Other: Impact on Illness or Injury [] Angry [] Fearful [] Anxious [] Often cries [] Exhaustion [] Unable to work [] Unable to attend protestant [] Unable to walk/stand [] Unable to read [] Unable to drive [] Unable to eat/drink [] Unable to sleep [] Unable to be with family [] Patient intubated [] Other: Summary Time spent with patient 5 min
[2023-07-28 10:16] VITALS: BP 131/93; PULSE 114; RESP 15; TEMP 36.7; O2SAT 95
== END 2023-07-28 10:52 | disposition home or self-care (01) ==
LOC: ER 09:08 → CSU 14:23
PROVIDERS: Admitting Provider Internal Medicine; Emergency Provider Emergency Medicine; PCP Nurse Practitioner; Visit Provider Internal Medicine
DX: I48.91 Unspecified atrial fibrillation (principal); R79.89 Other specified abnormal findings of blood chemistry; R07.9 Chest pain, unspecified; I10 Essential (primary) hypertension; I34.0 Nonrheumatic mitral (valve) insufficiency; I35.1 Nonrheumatic aortic (valve) insufficiency; I07.1 Rheumatic tricuspid insufficiency; I37.1 Nonrheumatic pulmonary valve insufficiency; N40.0 Benign prostatic hyperplasia without lower urinary tract symptoms; K21.9 Gastro-esophageal reflux disease without esophagitis; E78.5 Hyperlipidemia, unspecified
CPT/HCPCS: 36415; 71045; 80053; 83036; 83735; 83880; 84443; 84484; 85025; 85378; 85610; 93005; 93306; 96365; 96372; 96375; 99285; G0378; J1650; J3475; J3490

== ENCOUNTER → 2023-08-10 10:11 | Outpatient (BNVA) | payer OTHER, SELFPAY | PROVIDERS: PCP Nurse Practitioner; Visit Provider Nurse Practitioner Family | DX: I48.91 Unspecified atrial fibrillation (principal); Z87.891 Personal history of nicotine dependence | CPT/HCPCS: 93005; 99213 ==

== ENCOUNTER 2023-10-12 14:17 | Outpatient (CLI) | payer OTHER, SELFPAY ==
--- NOTE | 2023-10-12 14:22 | USCV_ITS ---
Cassius Thomas Age: 68 Gender: M : 1955 Exam Date: 10/12/2023 14:46 Ordering Phys: Idris Hillman Technologist: CT Exam Location: [facility] [place] Indication: CAD/A FIB BP: 130 / 85 HR: 65 Rhythm: Sinus Technical Quality: Adequate MEASUREMENTS (Male / Female) Normal Values 2D ECHO LV Chamber Size 5.0 cm RV Chamber Size 3.6 cm LVOT Diameter 2.1 cm LV Ejection Fraction MOD 2C 59.8 % LV Ejection Fraction 2C AL 58.4 % LA Diameter 5.5 cm LA Width 4.4 cm LA Height 5.5 cm RA Width 4.9 cm RA Height 5.8 cm Aorta at Sinotubular Diameter 2.8 cm IVC Diameter 1.8 cm M-MODE Aortic Annulus Diameter 4.3 cm LA Ao Ratio MM 1.3 MV E Point Septal Separation 0.7 cm DOPPLER AV Peak Velocity 135.0 cm/s LVOT Peak Velocity 86.0 cm/s AV Area Cont Eq vti 2.5 cm squared AV Area Cont Eq pk 2.3 cm squared MV E' Velocity 12.0 cm/s TR Peak Velocity 321.3 cm/s TR Peak Gradient 41.3 mmHg TV Peak E Velocity 110.0 cm/s Right Atrial Pressure 3.0 mmHg Pulmonary Artery Systolic Pressu 44.3 mmHg PV Peak Velocity 119.0 cm/s FINDINGS Left Ventricle Normal left ventricular size, systolic function and increased wall thickness, with no regional wall motion abnormalities. Left ventricular ejection fraction is estimated at 60 %. Rhythm precludes evaluation of diastolic function. Right Ventricle Normal right ventricular size and systolic function. Right ventricular systolic pressure 52 mmHg. Right Atrium Normal right atrial size. Left Atrium Mildly increased left atrial size. Mitral Valve Structurally normal mitral valve. No mitral valve stenosis. Trace mitral valve regurgitation. Aortic Valve Aortic valve not well visualized. No aortic valve stenosis. Mild aortic valve regurgitation. Tricuspid Valve Structurally normal tricuspid valve. No tricuspid valve stenosis. Mild tricuspid valve regurgitation. Pulmonic Valve Structurally normal pulmonic valve. No pulmonary valve stenosis. Mild pulmonary valve regurgitation. Pericardium No pericardial effusion. Aorta Normal size aortic root and proximal ascending aorta. IVC Normal IVC dimension with >50% respiratory change of the inferior vena cava. CONCLUSIONS 1. Normal left ventricular size, systolic function and increased wall thickness, with no regional wall motion abnormalities. Left ventricular ejection fraction is estimated at 60 %. 2. Mild aortic valve regurgitation. 3. Moderate pulmonary hypertension with pulmonary artery pressure estimated at 52 mm Hg. 4. When compared to study dated 07/27/23, there seems to be moderate pHTN now. Bharti Horton MD (Electronically Signed) Final Date: 16 October 2023 23:17 S
== END 2023-10-12 14:18 | disposition home or self-care (01) ==
LOC: RAD 14:17
PROVIDERS: PCP Nurse Practitioner; Visit Provider Chiropractor
DX: I25.10 Atherosclerotic heart disease of native coronary artery without angina pectoris (principal); I48.91 Unspecified atrial fibrillation; I35.1 Nonrheumatic aortic (valve) insufficiency; I27.20 Pulmonary hypertension, unspecified
CPT/HCPCS: 93306

== ENCOUNTER 2024-05-15 19:59 | Emergency (ER) | payer OTHER, SELFPAY ==
[2024-05-15 20:09] VITALS: BP 133/86; PULSE 81; RESP 18; TEMP 36.4; O2SAT 95
[2024-05-15 20:45] VITALS: BP 134/76; PULSE 87; RESP 16; TEMP 36.6; O2SAT 96
[2024-05-15 20:56] VITALS: BP 134/76; PULSE 89; RESP 16; O2SAT 96
--- NOTE | 2024-05-15 21:22 | CTR_ITS ---
PROCEDURE INFORMATION: Exam: CT Abdomen And Pelvis Without Contrast Exam date and time: 05/15/2024 10:00 PM Age: 68 years old Clinical indication: Abdominal pain; Patient HX: C/O left flank pain; Additional info: L flank pain TECHNIQUE: Imaging protocol: Computed tomography of the abdomen and pelvis without contrast. Radiation optimization: All CT scans at this facility use at least one of these dose optimization techniques: automated exposure control; mA and/or kV adjustment per patient size (includes targeted exams where dose is matched to clinical indication); or iterative reconstruction. COMPARISON: CR XR chest 1V portable [id number] 07/27/2023 7:36 AM RADIATION DOSE METRICS: Total DLP (mGy-cm): 671.02 FINDINGS: Lungs: Subsegmental bibasilar atelectasis. The visualized lung bases are otherwise clear. There is a pericardial cyst measuring 3 cm in the left epicardial fat pad. Diaphragm: No evidence of diaphragmatic defect. Liver: No evidence of focal hepatic lesion within limitation of a noncontrast exam. Gallbladder and biliary ducts: Suspected cholelithiasis versus biliary sludge. There is pericholecystic haziness raising the question of symptomatic cholelithiasis versus early acute cholecystitis in the proper clinical setting. No biliary dilatation. Pancreas: Grossly unremarkable. Spleen: Grossly unremarkable. Adrenal glands: Grossly unremarkable. Kidneys and ureters: 6.8 cm right upper pole renal mass. Correlation with follow-up multiphase CT or MRI of the abdomen is recommended. Mild left-sided hydronephrosis secondary to an obstructive 3 mm distal ureteral stone. No hydronephrosis on the right. There is a nonobstructive right-sided renal stone measuring 6 mm. Stomach and bowel: Colonic diverticulosis without evidence of acute diverticulitis. No bowel obstruction or perienteric inflammatory changes. Appendix: Normal appendix. Intraperitoneal space: No evidence of free air or fluid collection. Vasculature: No evidence of aneurysmal dilitation of abdominal aorta. Lymph nodes: No evidence of adenopathy. Urinary bladder: The right anterolateral bladder wall protrudes into the region of the right deep inguinal ring (image 97 of series 5). Reproductive: Enlarged prostate measuring 6 cm. Consider correlation with serum laboratory findings and outpatient urologic evaluation. Bones/joints: No evidence of acute fracture or aggresive osseous lesion. Soft tissues: No evidence of fluid collection or hematoma in the superficial soft tissues. Small fat containing bilateral inguinal hernias. CT/CT kidney stone [id number] IMPRESSION: 1. Mild left-sided hydronephrosis secondary to an obstructive 3 mm distal ureteral stone. 2. Findings raising the question of symptomatic cholelithiasis versus early acute cholecystitis in the proper clinical setting. Consider correlation with gallbladder ultrasound and biliary labs. 3. Large right upper pole renal mass. Correlation with follow-up multiphase CT or MRI of the abdomen is recommended.
[2024-05-15 21:24] LABS: Basophils # 0.1 10^3/uL (0.0-0.1); Basophils % 0.6 %; Eosinophils # 0.1 10^3/uL (0.0-0.8); Eosinophils % 0.6 %; Lymphocytes % 7.4 %; Mean Corpuscular HGB Conc 33.5 g/dL (30-55); Mean Corpuscular Hemoglobin 32.2 pg (27-33); Mean Corpuscular Volume 96.2 fl (82-101); Mean Platelet Volume 10.7 fL (7.4-10.4); Monocytes # 0.5 10^3/uL (0.2-0.9); Monocytes % 3.8 %; Neutrophils # 11.36 10^3/uL (1.8-7.7); Neutrophils % 87.3 %; Nucleated Red Blood Cells % 0 %; Platelet Count 194 10^3/cmm (157-399); Red Blood Count 4.16 10^6/uL (3.85-5.65); Red Cell Distribution Width 14.2 % (12.1-15.1); White Blood Count 13.03 10^3/uL (3.29-11.43)
[2024-05-15 21:42] LABS: Alanine Aminotransferase 43 U/L (0-41); Albumin Level 4.3 g/dL (3.5-5.2); Alkaline Phosphatase 110 U/L (40-130); Anion Gap 15.4 (5-19); Aspartate Amino Transferase 44 U/L (0-40); Blood Urea Nitrogen 20 mg/dL (8-23); Calcium 9.1 mg/dL (8.5-10.5); Carbon Dioxide 23 mmol/L (22-29); Chloride 108 mmol/L (98-107); Creatinine Clr Calc Pharmacy 65.7096; Globulin 2.8 g/dL (1.3-4.6); Glomerular Filtration Rate 59.9 mL/min (90-130); Glucose 153 mg/dL (65-115); Lipase 27 U/L (13-60); Osmolality Calculated 300 mOsm/kg (285-295); Potassium 4.4 mmol/L (3.5-5.1); Sodium 142 mmol/L (136-145); Total Bilirubin 0.4 mg/dL (0.15-1.2); Total Protein 7.1 g/dL (6.6-8.7)
[2024-05-15 21:43] LABS: Lactic Sepsis W/Reflex 1.9 mmol/L (0.5-2.2)
[2024-05-15 22:12] VITALS: BP 163/113; PULSE 86; RESP 18; O2SAT 93
[2024-05-15] MEDS: ondansetron 2 mg/ML SDV 2 mL 4 MG IVP (22:18)
[2024-05-15] MEDS: ketorolac 30 mg/mL INJ 15 MG IVP (22:20)
[2024-05-15] MEDS: fentaNYL 50 mcg/mL INJ 2mL IVP (22:27)
[2024-05-15 22:38] LABS: Add Urine Microscopic? YES; Bilirubin Urine Neg (Negative); Blood Urine 3+ (Negative); Glucose Urine UA Norm (Normal); Ketones Urine 1+ (Negative); Leukocyte Esterase Urine 1+ (Negative); Nitrate Urine Positive (Negative); Protein Urine 3+ (Negative); Specific Gravity, Urine 1.025 (1.005-1.030); Urine Appearance Turbid (CLEAR); Urine Color Other (Yellow); Urobilinogen Urine 1 mg/dL (Negative); pH Urine 6.5 (5-7)
[2024-05-15 22:39] LABS: Add Urine Culture? Yes; Bacteria Urine 3+ /hpf; Mucus Urine 2+ /hpf; RBC Urine TOO NUMEROUS TO CNT /hpf (0-2)
--- NOTE | 2024-05-15 22:58 | ED_ITS ---
HPI - Abdominal Pain 2 General: Chief Complaint: Abdominal Pain Stated Complaint: renal stone Time Seen by Provider: 05/15/24 20:38 History of Present Illness: 68 year old gentleman who presents with left flank pain that started earlier in the evening. When the pain gets significant, he has vomited a couple of times. no fever. Pain is improved at this point. He has a history of kidney stones, and he believes this is a similar pain. No fever. PFSH ED 2 PFSH: Medical History Anxiety Atrial fibrillation Benign essential hypertension with target blood pressure below 140/90 Bilateral carotid artery stenosis BPH (benign prostatic hyperplasia) GERD (gastroesophageal reflux disease) Hyperlipidemia Insomnia Palpitations Surgical History H/O hernia repair Family History Sister Cancer Other Hypertension Denies family history of Diabetes CAD (coronary artery disease) Clotting disorder Dementia Chronic kidney disease (CKD) Suicide Anesthesia complication Bleeding disorder Lung disease Stroke Social History Smoking and tobacco/nicotine status: former use of tobacco/nicotine Quit status (tobacco/nicotine): has quit using Year quit tobacco: 1999 Alcohol intake: never Substance/Drug Use: current Physical Exam 2 Const: COMMON NORMALS: no acute distress GENERAL APPEARANCE: cooperative; not ill appearing and not frail appearing HENMT: COMMON NORMALS: normocephalic, atraumatic and Normal external nose present HEAD & SCALP: normocephalic and atraumatic FACE & SINUS: normal facial exam and face symmetric NOSE: Normal external nose present Eye: COMMON NORMALS: Equal, round and reactive pupils present and EOMs intact bilaterally PUPIL: Yes Equal, round and reactive pupils present Neck/C-Spine: GENERAL: Yes trachea midline Chest: CHEST: Yes Symmetrical chest wall rise Resp: COMMON NORMALS: normal respiratory effort, No retractions, No use of accessory muscles and clear to auscultation bilaterally AUSCULTATION: clear to auscultation bilaterally Cardio: COMMON NORMALS: regular rate and regular rhythm RATE: regular rate RHYTHM: regular rhythm GI: COMMON NORMALS: Normal to inspection, nondistended, normoactive bowel sounds present PALPATION: Yes Tenderness to palpation present (GI) Details: LLQ : BLADDER/KIDNEY EXAM: Yes CVA tenderness Back/Pelvis: GENERAL BACK: Yes CVA tenderness CVA tenderness: left Extremity: COMMON NORMALS: no pedal edema Neuro: BRIAN COMA SCALE: document GCS findings Brian coma scale eye opening: Spontaneous Brian coma scale verbal response: Orientated [place] coma scale motor response: Obey commands [place] coma scale total score: 15 S ENSORY EXAM: Yes extremities (intact) Psych: COMMON NORMALS: speech normal SPEECH: Yes normal speech Skin: COMMON NORMALS: no rashes or lesions noted GENERAL SKIN EXAM: no rashes or lesions noted Course 2 Vital Signs: Vital signs: Vital Signs Temperature 97.8 F 05/16/24 00:11 Pulse Rate 86 05/16/24 00:11 Respiratory Rate 18 05/16/24 00:11 Blood Pressure 117/86 05/16/24 00:11 Pulse Oximetry 98 05/16/24 00:11 Oxygen Delivery Me thod Room Air 05/15/24 23:29 MDM - Abdominal Pain Medical Decision Making The patient is a febrile. He has minimal Leukocytosis. His CRP is only three period other laboratory is not remarkable. CT scan shows left sided hydronephrosis that is mild secondary to a 3mm UVJ stone. On urinalysis, and he has a mild urinary tract infection. He is treated with rocephin. And he'll be placed on cefdinir. Pain control and Flomax, which she is already on. He should be able to pass this down. He will return for vomiting liquids, fever, worsening pain despite treatment. He is encouraged to follow up with a urologist. Lab Data 05/15/24 20:55 05/15/24 20:55 Labs/Radiology: Radiology Impressions Abdomen/Pelvis CT 05/15/24 21:22 IMPRESSION: 1. Mild left-sided hydronephrosis secondary to an obstructive 3 mm distal ureteral stone. 2. Findings raising the question of symptomatic cholelithiasis versus early acute cholecystitis in the proper clinical setting. Consider correlation with gallbladder ultrasound and biliary labs. 3. Large right upper pole renal mass. Correlation with follow-up multiphase CT or MRI of the abdomen is recommended. Laboratory Results WBC 13.03 10^3/uL (3.29-11.43) H 05/15/24 20:55 RBC 4.16 10^6/uL (3.85-5.65) 05/15/24 20:55 Hgb 13.40 g/dL (11.27-16.99) 05/15/24 20:55 Hct 40.0 % (37-53) 05/15/24 20:55 MCV 96.2 fl (82-101) 05/15/24 20:55 MCH 32.2 pg (27-33) 05/15/24 20: MCHC 33.5 g/dL (30-55) 05/15/24 20:55 RDW 14.2 % (12.1-15.1) 05/15/24 20:55 Plt Count 194 10^3/cmm (157-399) 05/15/24 20: MPV 10.7 fL (7.4-10.4) H 05/15/24 20:55 Neut % (Auto) 87.3 % 05/15/24 20:55 Lymph % (Auto) 7.4 % 05/15/24 20:55 [place] % (Auto) 3.8 % 05/15/24 20:55 Eos % (Auto) 0.6 % 05/15/24 20:55 Baso % (Auto) 0.6 % 05/15/24 20:55 Neut # (Auto) 11.36 10^3/uL (1.8-7.7) H 05/15/24 20:55 Lymph # (Auto) 1.0 10^3/uL (0.8-4.8) 05/15/24 20:55 [place] # (Auto) 0.5 10^3/uL (0.2-0.9) 05/15/24 20:55 Eos # (Auto) 0.1 10^3/uL (0.0-0.8) 05/15/24 20:55 Baso # (Auto) 0.1 10^3/uL (0.0-0.1) 05/15/24 20:55 Nucleated RBC % (auto) 0 % 05/15/24 20:55 Nucleated RBCs # 0.0 /100WBC 05/15/24 20:55 Sodium 142 mmol/L (136-145) 05/15/24 20:55 Potassium 4.4 mmol/L (3.5-5.1) 05/15/24 20:55 Chloride 108 mmol/L (98-107) H 05/15/24 20:55 Carbon Dioxide 23 mmol/L (22-29) 05/15/24 20:55 Anion Gap 15.4 (5-19) 05/15/24 20:55 BUN 20 mg/dL (8-23) 05/15/24 20:55 Creatinine 1.2 mg/dL (0.7-1.2) 05/15/24 20:55 GFR Calculation 59.9 mL/min (90-130) L 05/15/24 20:55 Glucose 153 mg/dL (65-115) H 05/15/24 20:55 Calculated Osmolality 300 mOsm/kg (285-295) H 05/15/24 20:55 Lactic Acid 1.9 mmol/L (0.5-2.2) 05/15/24 20:55 Calcium 9.1 mg/dL (8.5-10.5) 05/15/24 20:55 Total Bilirubin 0.4 mg/dL (0.15-1.2) 05/15/24 20:55 AST 44 U/L (0-40) H 05/15/24 20:55 ALT 43 U/L (0-41) H 05/15/24 20:55 Alkaline Phosphatase 110 U/L (40-130) 05/15/24 20:55 C-Reactive Protein 3.0 mg/L (0.0-4.9) 05/15/24 20:55 Total Protein 7.1 g/dL (6.6-8.7) 05/15/24 20:55 Albumin 4.3 g/dL (3.5-5.2) 05/15/24 20:55 Globulin 2.8 g/dL (1.3-4.6) 05/15/24 20:55 Lipase 27 U/L (13-60) 05/15/24 20:55 Urine Color Other (Yellow) A 05/15/24: Urine Appearance Turbid (CLEAR) A 05/15/24 21: Urine pH 6.5 (5-7) 05/15/24 21:29 Ur Specific [place] 1.025 (1.005-1.030) 05/15/24 21:29 Urine Protein 3+ (Negative) H 05/15/24 21:29 Urine Glucose (UA) Norm (Normal) 05/15/24 21:29 Urine Ketones 1+ (Negative) H 05/15/24 21:29 Urine Blood 3+ (Negative) H 05/15/24 21:29 Urine Nitrate Positive (Negative) A 05/15/24 21:29 Urine Bilirubin Neg (Negative) 05/15/24 21:29 Urine Urobilinogen 1 mg/dL (Negative) H 05/15/24 21:29 Ur Leukocyte Esterase 1+ (Negative) H 05/15/24 21:29 Urine RBC Too numerous to cnt /hpf (0-2) H 05/15/24 21:29 Urine WBC 10-15 /hpf (0-5) H 05/15/24 21:29 Ur Squamous Epith Cells None /hpf (0-5) 05/15/24 21:29 Amorphous Sediment Not Reportable 05/15/24 21:29 Urine Bacteria 3+ /hpf (NONE) H 05/15/24 21:29 Urine Mucus 2+ /hpf 05/15/24 21:29 All radiology interpretation(s) finalized by discharge Discharge Plan Discharge Patient Disposition: Home Clinical Impression: Ureterolithiasis, UTI (urinary tract infection) Condition: Stable Prescriptions: New cefdinir 300 mg capsule 300 mg PO BID Qty: 14 0RF hydrocodone-acetaminophen 5-325 mg tablet 1 tab PO Q8H PRN (Reason: pain) Qty: 7 0RF ondansetron 4 mg tablet,disintegrating 4 mg PO Q6H PRN (Reason: nausea and vomiting) Qty: 14 0RF No Action omeprazole 20 mg capsule,delayed release(DR/EC) 20 mg PO QAM tamsulosin 0.4 mg capsule 0.8 mg PO BEDTIME hydralazine 100 mg tablet 100 mg PO BID Qty: 180 3RF Eliquis 5 mg tablet 5 mg PO BID Qty: 180 3RF metoprolol tartrate 100 mg tablet See Rx Instructions .ROUTE .COMPLEX Qty: 150 5RF Rx Instructions: 150mg (1&1/2 tab) po in the am and 100mg (1 tab) po bedtime multivitamin Tablet 1 tab PO QAM acetaminophen 500 mg Tablet 500 mg PO BID vitamin B complex Tablet 1 tab PO QAM Lipitor 80 mg Tablet 40 mg PO BEDTIME diltiazem HCl 240 mg Capsule,Extended Release 24hr 240 mg PO DAILY Qty: 30 0RF Discharge Orders: Discharge ED (Routine); Ordered 05/15/24 Ordered By: Carlos Irvin Referrals: Leeanna Mehta FNP [Primary Care Provider] - 4-7 days Patient Instructions: Kidney Stones (ED), Opioid Safety, Pain Management Activity Restrictions/Additional Instructions: Take antibiotics as directed. Pain and nausea medication as needed. Return for vomiting liquids or medications, fever greater than 100 despite 2-3 more doses of antibiotics, worsening pain despite treatment, other concerning symptoms. Call a urologist on Thursday, for follow-up. You will need to have your urine retested to ensure it is clearing. Also, follow-up with your doctor regarding other imaging findings on your CAT scan not related to your visit tonight, as repeat imaging may be necessary in the future. Coding Level of Care Code ED Engineering Operator for Jermaine Hays
[2024-05-15 23:29] VITALS: BP 117/86; PULSE 86; RESP 18; O2SAT 98
[2024-05-15] MEDS: cefTRIAXone 1,000 mg SDV 1000 MG IVP (23:30)
[2024-05-16 00:11] VITALS: BP 117/86; PULSE 86; RESP 18; TEMP 36.6; O2SAT 98
== END 2024-05-16 00:11 | disposition home or self-care (01) ==
PROVIDERS: Emergency Provider Emergency Medicine; PCP Nurse Practitioner
DX: N13.2 Hydronephrosis with renal and ureteral calculous obstruction (principal); N39.0 Urinary tract infection, site not specified; Z79.01 Long term (current) use of anticoagulants; I10 Essential (primary) hypertension; E78.5 Hyperlipidemia, unspecified; N40.0 Benign prostatic hyperplasia without lower urinary tract symptoms; Z87.891 Personal history of nicotine dependence
CPT/HCPCS: 74176; 80053; 81001; 83605; 83690; 85025; 86140; 87086; 96374; 96375; 99284; J0696; J1885; J2405; J3010

== ENCOUNTER 2024-06-18 05:44 | Inpatient (IN) | payer OTHER, MEDICARE, SELFPAY ==
[2024-06-18] VITALS (16 sets, daily range): BP systolic 99–139; BP diastolic 58–118; PULSE 97–125; RESP 8–22; TEMP 36.6–36.8; O2SAT 92–98; BMI 26.3
--- NOTE | 2024-06-18 05:50 | XRR_ITS ---
PROCEDURE INFORMATION: Exam: XR Chest Exam date and time: 06/18/2024 5:57 AM Age: 69 years old Clinical indication: Chest pressure; Patient HX: C/O chest pain with cough; Additional info: Dyspnea/cough TECHNIQUE: Imaging protocol: Radiologic exam of the chest. Views: 1 view. COMPARISON: CR XR chest 1V portable [id number] 07/27/2023 7:36 AM FINDINGS: Lungs: Unremarkable. No consolidation. Pleural spaces: Unremarkable. No pleural effusion. No pneumothorax. Heart/Mediastinum: Stable borderline cardiomegaly. Bones/joints: Unremarkable. XR/XR chest 1V portable [id number] IMPRESSION: Stable borderline cardiomegaly, otherwise clear chest
--- NOTE | 2024-06-18 05:50 | ECG_ITS ---
[facility] Test Date: 2024-06-18 Pat Name: Cassius Thomas Department: Room: Gender: Male Service Counselor: : 1955 Requested By: Tab Burrell Order Number: [id number] Donis MD: Mohsen Avila M.D. Measurements Intervals [place] Rate: 116 P: 0 [place]: 0 QRS: 19 QRSD: 89 T: 22 QT: 288 QTc: 401 Interpretive Statements ATRIAL FIBRILLATION WITH RAPID VENTRICULAR RESPONSE ABNORMAL RHYTHM ECG Compared to ECG 08/10/2023 10:17:09 No significant changes Electronically Signed On 06-18-2024 7:59:44 CDT by Mohsen Avila M.D. [email or web address]
[2024-06-18] MEDS: aspirin 81 mg Chew Tablet 324 MG PO (06:00)
--- NOTE | 2024-06-18 06:00 | ED_ITS ---
HPI - Chest Pain 2 General: Chief Complaint: Chest Pain Stated Complaint: chest pains SOB Time Seen by Provider: 06/18/24 05:47 History of Present Illness: 69-year-old male presents emergency room with complaint of chest discomfort this morning. He has a known history of atrial fibrillation. Chest pain began while he was sleeping on its his neck and his left arm. States he had a stress test a couple weeks ago that was positive he is not yet been admitted to rehab for this. He has a known history of atrial fibrillation recently they decreased his diltiazem from 2 40-1 80 due to bradycardia he is also on metoprolol. He is taken all of his medications and has not missed any doses no other medication changes. He is on oral anticoagulant. Associated symptoms: Reports palpitations; Deny abdominal pain, dyspnea or fever(s) Related Data Home Medications Medication Instructions Recorded Confirmed omeprazole 20 mg capsule,delayed 20 mg PO QAM 12/29/19 08/10/23 release tamsulosin 0.4 mg capsule 0.8 mg PO BEDTIME 05/27/22 08/10/23 acetaminophen 500 mg tablet 500 mg PO BID 07/27/23 08/10/23 atorvastatin 80 mg tablet (Lipitor) 40 mg PO BEDTIME 07/27/23 08/10/23 multivitamin 1 tab PO QAM 07/27/23 08/10/23 vitamin B complex 1 tab PO QAM 07/27/23 08/10/23 Previous Rx's Medication Instructions Recorded apixaban 5 mg tablet (Eliquis) 5 mg PO BID New onset Afib #180 05/05/22 tabs hydralazine 100 mg tablet 100 mg PO BID #180 tabs 06/08/23 diltiazem HCl 240 mg 240 mg PO DAILY #30 caps 07/28/23 capsule,extended release 24 hr metoprolol tartrate 100 mg tablet See Rx Instructions .Route 12/04/23 .COMPLEX #150 tabs cefdinir 300 mg capsule 300 mg PO BID #14 caps 05/15/24 hydrocodone 5 mg-acetaminophen 325 1 tab PO Q8H PRN pain #7 tabs 05/15/24 mg tablet ondansetron 4 mg disintegrating 4 mg PO Q6H PRN nausea and 05/15/24 tablet vomiting #14 tabs Allergies Allergy/AdvReac Type Severity Reaction Status Date / Time amlodipine Allergy Severe ALGY-Swell Verified 05/15/24 20:13 Lip/Tongue/Throat lisinopril Allergy Severe ALGY-Swell Verified 05/15/24 20:13 Lip/Tongue/Throat Review of Systems 2 Const: Denies: fever(s) or chills Card: Reports: chest pain, palpitations and irregular heart rhythm Resp: Denies: dyspnea GI: Denies: abdominal pain : Denies: dysuria, urinary frequency or urinary urgency Musc: Denies: neck pain or back pain Skin/Breast: Denies: rash PFSH ED 2 PFSH: Medical History Atrial fibrillation Palpitations Benign essential hypertension with target blood pressure below 140/90 Bilateral carotid artery stenosis Hyperlipidemia Anxiety BPH (benign prostatic hyperplasia) GERD (gastroesophageal reflux disease) Insomnia Surgical History H/O hernia repair Family History Sister Cancer Other Hypertension Denies family history of Diabetes CAD (coronary artery disease) Clotting disorder Dementia Chronic kidney disease (CKD) Suicide Anesthesia complication Bleeding disorder Lung disease Stroke Social History Smoking and tobacco/nicotine status: former use of tobacco/nicotine Quit status (tobacco/nicotine): has quit using Year quit tobacco: 1999 Alcohol intake: never Substance/Drug Use: current Physical Exam 2 Const: COMMON NORMALS: no acute distress GENERAL APPEARANCE: cooperative and comfortable ORIENTATION/CONSCIOUSNESS: Yes awake, Yes oriented to person, Yes oriented to place and Yes oriented to time HENMT: COMMON NORMALS: normocephalic, atraumatic and hearing grossly normal bilaterally HEAD & SCALP: normocephalic and atraumatic Resp: COMMON NORMALS: normal respiratory effort, No retractions, No use of accessory muscles and clear to auscultation bilaterally AUSCULTATION: clear to auscultation bilaterally Cardio: COMMON NORMALS: No murmurs present (Cardio) RATE: tachycardic R HYTHM: abnormal rhythm irregularly irregular GI: COMMON NORMALS: Soft to palpation and No hepatosplenomegaly present A USCULTATION: Yes normoactive bowel sounds PALPATION: Yes Soft to palpation, No Tenderness to palpation present (GI), No Guarding due to palpation present (GI) and Yes No hepatosplenomegaly present Extremity: COMMON NORMALS: normal to inspection, capillary refill normal, no clubbing, cyanosis or edema, no calf tenderness and no pedal edema Neuro: SENSORIUM/ORIENTATION: Yes oriented to person, Yes oriented to place and Yes oriented to time Skin: COMMON NORMALS: no rashes or lesions noted GENERAL SKIN EXAM: no rashes or lesions noted Course 2 Vital Signs: Vital signs: Vital Signs Temperature 98.2 F 06/18/24 05:48 Pulse Rate 118 H 06/18/24 08:32 Respiratory Rate 22 H 06/18/24 06:15 Blood Pressure 108/73 06/18/24 08:32 Pulse Oximetry 95 06/18/24 08:32 Oxygen Delivery Me thod Room Air 06/18/24 08:32 MDM - Chest Pain Medical Decision Making Patient arrives in A-fib with RVR he did improve we gave him a single push dose of Cardizem and gave him an oral dose to replicate the about that was decreased previously controlled him briefly and his heart rate began to go up with any activity even standing at the bedside to provide a urine sample his heart rate shoots up into the 130s. He was started back on IV Cardizem and titrated up at this point we will need to admit to reevaluate medication regimen for rate control discussed with hospitalist orders written Lab Data 06/18/24 05:56 06/18/24 05:56 Radiology Impressions Chest X-Ray 06/18/24 05:50 IMPRESSION: Stable borderline cardiomegaly, otherwise clear chest Laboratory Results WBC 11.47 10^3/uL (3.29-11.43) H 06/18/24 05:56 RBC 4.35 10^6/uL (3.85-5.65) 06/18/24 05:56 Hgb 14.00 g/dL (11.27-16.99) 06/18/24 05:56 Hct 42.0 % (37-53) 06/18/24 05:56 MCV 96.6 fl (82-101) 06/18/24 05:56 MCH 32.2 pg (27-33) 06/18/24 05:56 MCHC 33.3 g/dL (30-55) 06/18/24 05:56 RDW 13.6 % (12.1-15.1) 06/18/24 05:56 Plt Count 201 10^3/cmm (157-399) 06/18/24 05:56 MPV 10.4 fL (7.4-10.4) 06/18/24 05:56 Neut % (Auto) 77.7 % 06/18/24 05:56 Lymph % (Auto) 14.6 % 06/18/24 05:56 [place] % (Auto) 5.9 % 06/18/24 05:56 Eos % (Auto) 0.8 % 06/18/24 05:56 Baso % (Auto) 0.6 % 06/18/24 05:56 Neut # (Auto) 8.90 10^3/uL (1.8-7.7) H 06/18/24 05:56 Lymph # (Auto) 1.7 10^3/uL (0.8-4.8) 06/18/24 05:56 [place] # (Auto) 0.7 10^3/uL (0.2-0.9) 06/18/24 05:56 Eos # (Auto) 0.1 10^3/uL (0.0-0.8) 06/18/24 05:56 Baso # (Auto) 0.1 10^3/uL (0.0-0.1) 06/18/24 05:56 Nucleated RBC % (auto) 0 % 06/18/24 05:56 Nucleated RBCs # 0.0 /100WBC 06/18/24 05:56 Sodium 142 mmol/L (136-145) 06/18/24 05:56 Potassium 4.1 mmol/L (3.5-5.1) 06/18/24 05:56 Chloride 108 mmol/L (98-107) H 06/18/24 05:56 Carbon Dioxide 21 mmol/L (22-29) L 06/18/24 05:56 Anion Gap 17.1 (5-19) 06/18/24 05:56 BUN 20 mg/dL (8-23) 06/18/24 05:56 Creatinine 1.0 mg/dL (0.7-1.2) 06/18/24 05:56 GFR Calculation Not Reportable 06/18/24 05:56 Glucose 147 mg/dL (65-115) H 06/18/24 05:56 Calculated Osmolality 299 mOsm/kg (285-295) H 06/18/24 05:56 Calcium 9.3 mg/dL (8.5-10.5) 06/18/24 05:56 Total Bilirubin 0.4 mg/dL (0.15-1.2) 06/18/24 05:56 AST 40 U/L (0-40) 06/18/24 05:56 ALT 44 U/L (0-41) H 06/18/24 05:56 Alkaline Phosphatase 100 U/L (40-130) 06/18/24 05:56 Troponin T Baseline 9 ng/L (0-15) 06/18/24 05:56 Troponin T 120 Minute 7.08 ng/L (0-15) 06/18/24 07:44 Delta Troponin T -1.92 ABS# (0-10) L 06/18/24 07:44 Total Protein 7.0 g/dL (6.6-8.7) 06/18/24 05:56 Albumin 4.6 g/dL (3.5-5.2) 06/18/24 05:56 Globulin 2.4 g/dL (1.3-4.6) 06/18/24 05:56 All radiology interpretation(s) finalized by discharge Discharge Plan Discharge Patient Disposition: Admitted As Inpatient Clinical Impression: Atrial fibrillation with rapid ventricular response Condition: Stable Prescriptions: No Action omeprazole 20 mg capsule,delayed release(DR/EC) 20 mg PO QAM tamsulosin 0.4 mg capsule 0.8 mg PO BEDTIME hydralazine 100 mg tablet 100 mg PO BID Qty: 180 3RF Eliquis 5 mg tablet 5 mg PO BID Qty: 180 3RF metoprolol tartrate 100 mg tablet See Rx Instructions .ROUTE .COMPLEX Qty: 150 5RF Rx Instructions: 150mg (1&1/2 tab) po in the am and 100mg (1 tab) po bedtime multivitamin Tablet 1 tab PO QAM acetaminophen 500 mg Tablet 500 mg PO BID vitamin B complex Tablet 1 tab PO QAM Lipitor 80 mg Tablet 40 mg PO BEDTIME diltiazem HCl 240 mg Capsule,Extended Release 24hr 240 mg PO DAILY Qty: 30 0RF cefdinir 300 mg capsule 300 mg PO BID Qty: 14 0RF hydrocodone-acetaminophen 5-325 mg tablet 1 tab PO Q8H PRN (Reason: pain) Qty: 7 0RF ondansetron 4 mg tablet,disintegrating 4 mg PO Q6H PRN (Reason: nausea and vomiting) Qty: 14 0RF Referrals: Leeanna Mehta ACCOUNTS PAYABLE BOOKKEEPER [Primary Care Provider] - Coding Level of Care Code ED Policy Value Calculator for Jermaine Hays
[2024-06-18 06:03] LABS: Basophils # 0.1 10^3/uL (0.0-0.1); Basophils % 0.6 %; Eosinophils # 0.1 10^3/uL (0.0-0.8); Eosinophils % 0.8 %; Lymphocytes # 1.7 10^3/uL (0.8-4.8); Lymphocytes % 14.6 %; Mean Corpuscular HGB Conc 33.3 g/dL (30-55); Mean Corpuscular Hemoglobin 32.2 pg (27-33); Mean Corpuscular Volume 96.6 fl (82-101); Mean Platelet Volume 10.4 fL (7.4-10.4); Monocytes # 0.7 10^3/uL (0.2-0.9); Monocytes % 5.9 %; Neutrophils % 77.7 %; Nucleated Red Blood Cells % 0 %; Platelet Count 201 10^3/cmm (157-399); Red Blood Count 4.35 10^6/uL (3.85-5.65); Red Cell Distribution Width 13.6 % (12.1-15.1); White Blood Count 11.47 10^3/uL (3.29-11.43)
[2024-06-18 06:22] LABS: Alanine Aminotransferase 44 U/L (0-41); Albumin Level 4.6 g/dL (3.5-5.2); Alkaline Phosphatase 100 U/L (40-130); Anion Gap 17.1 (5-19); Aspartate Amino Transferase 40 U/L (0-40); Blood Urea Nitrogen 20 mg/dL (8-23); Calcium 9.3 mg/dL (8.5-10.5); Carbon Dioxide 21 mmol/L (22-29); Chloride 108 mmol/L (98-107); Creatinine Clr Calc Pharmacy 76.1603; Globulin 2.4 g/dL (1.3-4.6); Glucose 147 mg/dL (65-115); Osmolality Calculated 299 mOsm/kg (285-295); Potassium 4.1 mmol/L (3.5-5.1); Sodium 142 mmol/L (136-145); Total Bilirubin 0.4 mg/dL (0.15-1.2)
[2024-06-18 06:24] LABS: Troponin(5th) Baseline 9 ng/L (0-15)
[2024-06-18] MEDS: dilTIAZem 5 mg/mL SDV 5 mL 20 MG IVP (06:31)
[2024-06-18] MEDS: dilTIAZem 60 mg Tablet PO (06:31)
[2024-06-18 08:08] LABS: Troponin 5 2HR 7.08 ng/L (0-15)
[2024-06-18 08:09] LABS: Troponin 5 2HR Delta -1.92 ABS# (0-10)
[2024-06-18] MEDS: dilTIAZem 5 mg/mL SDV 5 mL 10 MG IVP (08:34)
[2024-06-18] MEDS: dilTIAZem 100 MG in sodium chloride 0.9% (add-van) 100 ML IV (08:43)
--- NOTE | 2024-06-18 10:28 | P.HP_ITS ---
Providers/Chief Complaint 2 Admitting Physician: Duy Chong MD Primary Care Provider: KAM Murillo Chief Complaint: chest pains SOB History of Present Illness Cassius Thomas is a 69 year old male with past medical history of atrial fibrillation, CAD, hypertension, hyperlipidemia, who presents to [facility] for chest palpitations and chest pain. Patient tells me that a few weeks ago, he had a stress test, done in [place], he was told that he had a blockage in the inferior part of his heart, recently Cardizem dose, was decreased, due to lightheadedness, dizziness, concerns for low blood pressure. Currently he is on metoprolol 150 mg the morning, 100 mg in the evening, and his Cardizem dose is decreased to 240 mg. He tells me that this morning, he had chest pain and palpitations, found to have A-fib with RVR in the emergency room, given several doses of Cardizem pushes, but continues to have A-fib with RVR, placed on Cardizem drip Review of Systems 2 Const: Denies: fever(s) or chills Card: Reports: chest pain, irregular heart rhythm and dyspnea on exertion Medications/Allergies Home Medications Medication Instructions Recorded Confirmed Last Taken Type omeprazole 20 mg capsule,delayed 20 mg PO QAM 12/29/19 08/10/23 07/27/23 History release apixaban 5 mg tablet (Eliquis) 5 mg PO BID New onset Afib #180 05/05/22 08/10/23 07/27/23 03:00 Rx tabs tamsulosin 0.4 mg capsule 0.8 mg PO BEDTIME 05/27/22 08/10/23 07/26/23 History hydralazine 100 mg tablet 100 mg PO BID #180 tabs 06/08/23 08/10/23 07/27/23 03:00 Rx acetaminophen 500 mg tablet 500 mg PO BID 07/27/23 08/10/23 07/27/23 History atorvastatin 80 mg tablet (Lipitor) 40 mg PO BEDTIME 07/27/23 08/10/23 07/26/23 History multivitamin 1 tab PO QAM 07/27/23 08/10/23 07/27/23 03:00 History vitamin B complex 1 tab PO QAM 07/27/23 08/10/2323 History diltiazem HCl 240 mg 240 mg PO DAILY #30 caps 07/28/23 08/10/23 Unknown Rx capsule,extended release 24 hr metoprolol tartrate 100 mg tablet See Rx Instructions .Route 12/04/23 Unknown Rx .COMPLEX #150 tabs cefdinir 300 mg capsule 300 mg PO BID #14 caps 05/15/24 Unknown Rx hydrocodone 5 mg-acetaminophen 325 1 tab PO Q8H PRN pain #7 tabs 05/15/24 Unknown Rx mg tablet ondansetron 4 mg disintegrating 4 mg PO Q6H PRN nausea and 05/15/24 Unknown Rx tablet vomiting #14 tabs Allergies Allergy/AdvReac Type Severity Reaction Status Date / Time amlodipine Allergy Severe ALGY-Swell Verified 05/15/24 20:13 Lip/Tongue/Throat lisinopril Allergy Severe ALGY-Swell Verified 05/15/24 20:13 Lip/Tongue/Throat PFSH Acute 2 PFSH: Medical History Atrial fibrillation Palpitations Benign essential hypertension with target blood pressure below 140/90 Bilateral carotid artery stenosis Hyperlipidemia Anxiety BPH (benign prostatic hyperplasia) GERD (gastroesophageal reflux disease) Insomnia Surgical History H/O hernia repair Family History Sister Cancer Other Hypertension Denies family history of Diabetes CAD (coronary artery disease) Clotting disorder Dementia Chronic kidney disease (CKD) Suicide Anesthesia complication Bleeding disorder Lung disease Stroke Social History Smoking and tobacco/nicotine status: former use of tobacco/nicotine Quit status (tobacco/nicotine): has quit using Year quit tobacco: 1999 Alcohol intake: never Substance/Drug Use: current Vitals/I&O/Wt Last Vital Signs Temp 98.2 F 06/18/24 05:48 Pulse 118 H 06/18/24 08:32 Resp 22 H 06/18/24 06:15 BP 108/73 06/18/24 08:32 Pulse Ox 95 06/18/24 08:32 O2 Del Method Room Air 06/18/24 08:32 06/17/24 06/18/24 06/18/24 22:59 06:59 14:59 Intake Total 5.167 / 5.167 Balance 5.167 / 5.167 Weight last 48 hrs Weight 85.729 kg Physical Exam 2 Const: COMMON NORMALS: no acute distress and patient oriented x3 Eye: COMMON NORMALS: Equal, round and reactive pupils present and EOMs intact bilaterally Resp: COMMON NORMALS: normal respiratory effort, No retractions, No use of accessory muscles and clear to auscultation bilaterally AUSCULTATION: clear to auscultation bilaterally Cardio: COMMON NORMALS: S1 normal heart sound present and S2 normal heart sound present RATE: tachycardic RHYTHM: abnormal rhythm HEART SOUNDS: S 1 normal heart sound present and S2 normal heart sound present GI: COMMON NORMALS: Normal to inspection, nondistended, normoactive bowel sounds present, Soft to palpation and non-tender Extremity: COMMON NORMALS: no calf tenderness and no pedal edema Neuro: COMMON NORMALS: patient oriented x3, CN's II-XII intact bilaterally and moves all extremities Psych: COMMON NORMALS: mental status grossly normal Data 06/18/24 05:56 06/18/24 05:56 A&P Assessment and plan (1) Atrial fibrillation with rapid ventricular response: (2) Chest pain: Plan A-fib with RVR -Admit to cardiac stepdown unit -Continue home Eliquis -Stop Cardizem drip -Switch to amiodarone drip -TSH, mag Chest pain complaints -Currently chest pain-free -Serial EKGs, serial troponins, telemetry monitoring Continue aspirin, statin, beta-estela -cardiac echo Full code ? Eliquis for DVT prophylaxis Attestations 2 Medical Necessity Statement*: Patient requires hospitalization, inpatient, greater than 2 midnights, for A-fib with RVR, chest pain Diagnoses Atrial fibrillation with rapid ventricular response I48.91 Chest pain R07.9
[2024-06-18 11:00] LABS: Magnesium 1.8 mg/dL (1.7-2.3); NT Pro B Type Natriuretic Pept 1870 pg/mL (0-125)
[2024-06-18] MEDS: pantoprazole 40 mg SDV IVP (11:13)
--- NOTE | 2024-06-18 11:50 | ECG_ITS ---
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 Measurements Intervals [place] Rate: 115 P: 0 VA: 0 QRS: 31 QRSD: 89 T: 22 QT: 311 QTc: 432 Interpretive Statements ATRIAL FIBRILLATION WITH RAPID VENTRICULAR RESPONSE Compared to ECG 06/18/2024 05:50:09 No significant changes Electronically Signed On 06-19-2024 9:13:34 CDT by Mohsen Avila M.D. [email or web address]
[2024-06-18 11:53] LABS: Troponin 5 6HR 6.91 ng/L (0-15)
[2024-06-18 11:54] LABS: Troponin 5 6HR Delta -2.09 ng/L (0-12)
[2024-06-18 12:00] LABS: Estmated Average Glucose 123; Hemoglobin A1C 5.9 % (4.0-6.0); Thyroid Stimulating Hormone 0.94 uIU/mL (0.27-4.20)
[2024-06-18 12:00] LABS: INR 1.34 (0.8-1.2)
[2024-06-18 13:09] LABS: Charge for UA Resulting for Rev
[2024-06-18 13:31] LABS: Bilirubin Urine Negative (Negative); Blood Urine Negative (Negative); Glucose Urine UA Negative (Normal); Ketones Urine Trace (Negative); Leukocyte Esterase Urine Negative (Negative); Nitrate Urine Negative (Negative); Protein Urine Trace (Negative); Specific Gravity, Urine 1.026 (1.005-1.030); Urine Appearance Clear (CLEAR); Urine Color Dark Yellow (Yellow)
[2024-06-18 13:33] LABS: Bacteria Urine None Seen /hpf; RBC Urine 0-2 /hpf (0-2); Squamous Epithelial Cell Urine 0-5 /hpf (0-5); WBC Urine 0-5 /hpf (0-5)
--- NOTE | 2024-06-18 15:04 | P.PN_ITS ---
Subjective 2 Subjective: Currently denies any chest pain admits to overall aches and pains appear to have emotional stress Vitals/I&O/Wt Last Vital Signs Temp 98.0 F 06/18/24 11:56 Pulse 118 H 06/18/24 11:56 Resp 18 06/18/24 11:56 BP 118/90 06/18/24 11:56 Pulse Ox 96 06/18/24 11:56 O2 Del Method Room Air 06/18/24 11:56 06/18/24 06/18/24 06/18/24 06:59 14:59 22:59 Intake Total 45.667 / 45.667 Output Total 175 / 175 Balance -129.333 / -129.333 Weight last 48 hrs Weight 189 lb Weight 189 lb Physical Exam 2 Const: OTHER: Alert awake oriented x 3 Heart regular S1-S2 Lung clear to auscultate bilaterally 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
[2024-06-18] MEDS: apixaban 5 mg Tablet PO (17:20)
[2024-06-18] MEDS: tamsulosin 0.4 mg Capsule 0.8 MG PO (21:33)
[2024-06-18] MEDS: atorvastatin 40 mg Tablet PO (21:33)
[2024-06-18] MEDS: metoprolol tartrate 50 mg Tablet 100 MG PO (21:33)
[2024-06-19] VITALS (8 sets, daily range): BP systolic 124–162; BP diastolic 92–107; PULSE 96–110; RESP 12–27; TEMP 36.5–36.8; O2SAT 95–97
[2024-06-19 03:35] LABS: Basophils # 0.1 10^3/uL (0.0-0.1); Basophils % 0.5 %; Eosinophils # 0.2 10^3/uL (0.0-0.8); Eosinophils % 1.6 %; Hematocrit 39.2 % (37-53); Lymphocytes # 1.7 10^3/uL (0.8-4.8); Lymphocytes % 17.5 %; Mean Corpuscular HGB Conc 33.2 g/dL (30-55); Mean Corpuscular Hemoglobin 31.8 pg (27-33); Mean Corpuscular Volume 95.8 fl (82-101); Mean Platelet Volume 10.7 fL (7.4-10.4); Monocytes # 0.7 10^3/uL (0.2-0.9); Monocytes % 7.5 %; Neutrophils # 7.12 10^3/uL (1.8-7.7); Neutrophils % 72.7 %; Nucleated Red Blood Cells % 0 %; Platelet Count 177 10^3/cmm (157-399); Red Blood Count 4.09 10^6/uL (3.85-5.65); Red Cell Distribution Width 13.4 % (12.1-15.1); White Blood Count 9.81 10^3/uL (3.29-11.43)
[2024-06-19 04:07] LABS: Anion Gap 17.3 (5-19); Blood Urea Nitrogen 11 mg/dL (8-23); Carbon Dioxide 24 mmol/L (22-29); Chloride 109 mmol/L (98-107); Creatinine Clr Calc Pharmacy 84.6225; Glucose 127 mg/dL (65-115); Osmolality Calculated 303 mOsm/kg (285-295); Potassium 4.3 mmol/L (3.5-5.1); Sodium 146 mmol/L (136-145)
[2024-06-19] MEDS: metoprolol tartrate 50 mg Tablet 150 MG PO (05:47)
[2024-06-19] MEDS: amiodarone 200 mg Tablet 400 MG PO (08:52)
[2024-06-19] MEDS: aspirin 81 mg EC Tablet PO (08:53)
[2024-06-19] MEDS: apixaban 5 mg Tablet PO (08:53)
[2024-06-19 09:26] LABS: NT Pro B Type Natriuretic Pept 1526 pg/mL (0-125)
--- NOTE | 2024-06-19 09:48 | PC.NURSE ---
stopped amiodarone drip received order from dr gurrola to stop amiodarone drip. and start the oral amiodarone as ordered.
--- NOTE | 2024-06-19 10:30 | USCV_ITS ---
Cassius Thomas Age: 69 Gender: M : 1955 Exam Date: 06/19/2024 09:41 Ordering Phys: Duy Chong MD Technologist: Kingsley Johnson [place] [facility] [place]: chest pain BP: 92 / 55 HR: 67 Rhythm: Atrial fibrillation Technical Quality: Adequate MEASUREMENTS (Male / Female) Normal Values 2D ECHO LV Diastolic Diameter PLAX 4.9 cm 4.2 - 5.9 / 3.9 - 5.3 cm IVS Diastolic Thickness 1.4 cm 0.6 - 1.0 / 0.6 - 0.9 cm IVS Systolic Thickness 1.7 cm LVPW Diastolic Thickness 1.7 cm 0.6 - 1.0 / 0.6 - 0.9 cm LVPW Systolic Thickness 3.1 cm LV Ejection Fraction 2D Teich 68.8 % LV Ejection Fraction MOD 4C 62.4 % LV Ejection Fraction MOD 2C 62.3 % LV Ejection Fraction 2C AL 65.5 % LA Diameter 4.8 cm Aorta at Sinotubular Diameter 3.1 cm IVC Diameter 1.8 cm M-MODE LA Ao Ratio MM 1.4 AV Cusp Separation MM 2.5 cm DOPPLER AV Peak Velocity 294.0 cm/s LVOT Peak Velocity 95.0 cm/s MV Peak Velocity 113.0 cm/s MV Area PHT 7.0 cm squared Mitral E to A Ratio 3.1 TV Peak Velocity 256.5 cm/s TR Peak Velocity 277.0 cm/s TR Peak Gradient 30.7 mmHg TR Mean Velocity 212.0 cm/s TR Mean Gradient 20.1 mmHg TR Velocity Time Integral 68.5 cm PV Peak Velocity 78.0 cm/s RV Ejection Time 0.3 s FINDINGS Left Ventricle Normal left ventricular size, systolic function and wall thickness, no regional wall motion abnormalities. Estimate ejection fraction is 55%. Grade IV/IV diastolic dysfunction (irreversible restrictive filling pattern), severely elevated filling pressures. Right Ventricle The right ventricle is normal in size and function. Right Atrium The right atrium is normal in size. Left Atrium Moderately increased left atrial size. Mitral Valve Structurally normal mitral valve without significant stenosis or prolapse. There is trace mitral regurgitation. Aortic Valve Structurally normal aortic valve without significant sclerosis or stenosis. There is trace aortic regurgitation. Tricuspid Valve [id number] tricuspid valve regurgitation. Pulmonic Valve Structurally normal pulmonic valve without significant stenosis. There is mild pulmonic regurgitation. Pericardium Normal pericardium without effusion. Aorta Normal ascending aorta dimension. IVC The inferior vena cava appears normal. CONCLUSIONS 1-Normal left ventricular size, systolic function and wall thickness, no regional wall motion abnormalities. Estimate ejection fraction is 55%. Grade IV/IV diastolic dysfunction (irreversible restrictive filling pattern), severely elevated filling pressures. 7-Wbev-jm-moderate tricuspid valve regurgitation. 3-There is no pericardial effusion. 4-There is no pericardial effusion. 5-Right atrial pressure is around 5 mm of mercury. Raj Mcconnell MD (Electronically Signed) Final Date: 19 June 2024 18:21 S
--- NOTE | 2024-06-19 10:39 | PC.NURSE ---
Ambulation pt ambulated down hallways and in his room. Telemetry box attached during activity. Monitored HR ranges between upper 90s to 110s, for a couple seconds noted HR goes up to upper 120s 130s. Pt denies any sob,chest pain or discomfort. notified dr gurrola.
[2024-06-19] MEDS: hyDRALAzine 50 mg Tablet PO (10:56)
[2024-06-19] MEDS: pantoprazole 40 mg SDV IVP (10:58)
--- NOTE | 2024-06-19 11:01 | P.DS_ITS ---
Discharge Providers Date of Admission: 06/18/24 09:29 Date of Discharge: June 19, 2024 Attending Provider at Admission: Duy Chong MD Attending Provider at Discharge: Duy Chong MD Primary Care Provider: KAM Murillo Diagnoses at Discharge Discharge Diagnosis (1) Atrial fibrillation with controlled ventricular rate: Status: Acute (2) Chest pain: Status: Resolved (3) Atrial fibrillation with rapid ventricular response: Status: Resolved Reason for Visit Reason for Visit: chest pains SOB Hospital Course Hospital Course Cassius Thomas is a 69 year old male with past medical history of atrial fibrillation, CAD, hypertension, hyperlipidemia, who presents to [facility] [place] for chest palpitations and chest pain. Patient tells me that a few weeks ago, he had a stress test, done in [place], he was told that he had a blockage in the inferior part of his heart, recently Cardizem dose, was decreased, due to lightheadedness, dizziness, concerns for low blood pressure. Currently he is on metoprolol 150 mg the morning, 100 mg in the evening, and his Cardizem dose is decreased to 240 mg. He tells me that this morning, he had chest pain and palpitations, found to have A-fib with RVR in the emergency room, given several doses of Cardizem pushes, but continues to have A-fib with RVR, placed on Cardizem drip Patient was admitted to [facility] [place] with A-fib with RVR, managed on amiodarone drip, Overall patient's heart rates remain reasonable, transition to p.o. Cardizem, heart rates between 100-110, they do go up to the 120s on exertion, he tells me that that is normal for him, and in the past when they have tried to control his heart rates more aggressively he has had issues with lightheadedness and dizziness. Nonetheless I am going to have him follow-up with his primary care provider as outpatient follow-up with cardiology as outpatient. Have primary care provider recheck your thyroid function, and your liver functions outpatient Physical Exam Const: COMMON NORMALS: no acute distress and patient oriented x3 Resp: COMMON NORMALS: normal respiratory effort, No retractions, No use of accessory muscles and clear to auscultation bilaterally AUSCULTATION: clear to auscultation bilaterally Cardio: COMMON NORMALS: regular rate, regular rhythm, S1 normal heart sound present and S2 normal heart sound present RATE: regular rate RHYTHM: regular rhythm HEART SOUNDS: S1 normal heart sound present and S2 normal heart sound present GI: COMMON NORMALS: Normal to inspection, nondistended, normoactive bowel sounds present and non-tender Extremity: COMMON NORMALS: no pedal edema Neuro: COMMON NORMALS: patient oriented x3 Psych: COMMON NORMALS: mental status grossly normal Discharge Data Studies Completed and Pending Completed Studies During Hospitalization Category Date Time Status XR chest 1V portable [id number] Stat Exams 06/18/24 05:50 Completed Pending at discharge Category Date Time Status Basic Metabolic Panel AM LABS Lab 06/20/24 04:00 Ordered Basic Metabolic Panel AM LABS Lab 06/21/24 04:00 Ordered Complete Blood Count w/Auto AM LABS Lab 06/20/24 04:00 Ordered Complete Blood Count w/Auto AM LABS Lab 06/21/24 04:00 Ordered CV. echo complete* [id number] Routine Ultrasound 06/19/24 10:30 Taken Radiology Impressions Chest X-Ray 06/18/24 05:50 IMPRESSION: Stable borderline cardiomegaly, otherwise clear chest Laboratory Results WBC 9.81 10^3/uL (3.29-11.43) 06/19/24 02:42 RBC 4.09 10^6/uL (3.85-5.65) 06/19/24 02:42 Hgb 13.00 g/dL (11.27-16.99) 06/19/24 02:42 Hct 39.2 % (37-53) 06/19/24 02:42 MCV 95.8 fl (82-101) 06/19/24 02:42 MCH 31.8 pg (27-33) 06/19/24 02:42 MCHC 33.2 g/dL (30-55) 06/19/24 02:42 RDW 13.4 % (12.1-15.1) 06/19/24 02:42 Plt Count 177 10^3/cmm (157-399) 06/19/24 02:42 MPV 10.7 fL (7.4-10.4) H 06/19/24 02:42 Neut % (Auto) 72.7 % 06/19/24 02:42 Lymph % (Auto) 17.5 % 06/19/24 02:42 [place] % (Auto) 7.5 % 06/19/24 02:42 Eos % (Auto) 1.6 % 06/19/24 02:42 Baso % (Auto) 0.5 % 06/19/24 02:42 Neut # (Auto) 7.12 10^3/uL (1.8-7.7) 06/19/24 02:42 Lymph # (Auto) 1.7 10^3/uL (0.8-4.8) 06/19/24 02:42 [place] # (Auto) 0.7 10^3/uL (0.2-0.9) 06/19/24 02:42 Eos # (Auto) 0.2 10^3/uL (0.0-0.8) 06/19/24 02:42 Baso # (Auto) 0.1 10^3/uL (0.0-0.1) 06/19/24 02:42 Nucleated RBC % (auto) 0 % 06/19/24 02:42 Nucleated RBCs # 0.0 /100WBC 06/19/24 02:42 PT 17.00 SECONDS (12.1-14.9) H 06/18/24 11:41 INR 1.34 (0.8-1.2) H 06/18/24 11:41 Sodium 146 mmol/L (136-145) H 06/19/24 02:42 Potassium 4.3 mmol/L (3.5-5.1) 06/19/24 02:42 Chloride 109 mmol/L (98-107) H 06/19/24 02:42 Carbon Dioxide 24 mmol/L (22-29) 06/19/24 02:42 Anion Gap 17.3 (5-19) 06/19/24 02:42 BUN 11 mg/dL (8-23) 06/19/24 02:42 Creatinine 0.9 mg/dL (0.7-1.2) 06/19/24 02:42 GFR Calculation Not Reportable 06/19/24 02:42 Glucose 127 mg/dL (65-115) H 06/19/24 02:42 Estimat Average Glucose 123 06/18/24 11:25 Hemoglobin A1c 5.9 % (4.0-6.0) 06/18/24 11:25 Calculated Osmolality 303 mOsm/kg (285-295) H 06/19/24 02:42 Calcium 9.0 mg/dL (8.5-10.5) 06/19/24 02:42 Magnesium 1.8 mg/dL (1.7-2.3) 06/18/24 07:44 Total Bilirubin 0.4 mg/dL (0.15-1.2) 06/18/24 05:56 AST 40 U/L (0-40) 06/18/24 05:56 ALT 44 U/L (0-41) H 06/18/24 05:56 Alkaline Phosphatase 100 U/L (40-130) 06/18/24 05:56 Troponin T Baseline 9 ng/L (0-15) 06/18/24 05:56 Troponin T 120 Minute 7.08 ng/L (0-15) 06/18/24 07:44 Delta Troponin T -1.92 ABS# (0-10) L 06/18/24 07:44 Troponin T Hi Sens 6Hr 6.91 ng/L (0-15) 06/18/24 11:25 Troponin T Hi Sens 6Hr Delta -2.09 ng/L (0-12) L 06/18/24 11:25 NT-Pro-B Natriuret Pep 1526 pg/mL (0-125) H 06/19/24 08:45 Total Protein 7.0 g/dL (6.6-8.7) 06/18/24 05:56 Albumin 4.6 g/dL (3.5-5.2) 06/18/24 05:56 Globulin 2.4 g/dL (1.3-4.6) 06/18/24 05:56 TSH 0.94 uIU/mL (0.27-4.20) 06/18/24 11:25 Urine Color Dark yellow (Yellow) A 06/18/24 12:25 Urine Appearance Clear (CLEAR) 06/18/24 12:25 Urine pH 5.0 (5-7) 06/18/24 12:25 Ur Specific [place] 1.026 (1.005-1.030) 06/18/24 12:25 Urine Protein Trace (Negative) A 06/18/24 12:25 Urine Glucose (UA) Negative (Normal) 06/18/24 12:25 Urine Ketones Trace (Negative) 06/18/24 12:25 Urine Blood Negative (Negative) 06/18/24 12:25 Urine Nitrate Negative (Negative) 06/18/24 12:25 Urine Bilirubin Negative (Negative) 06/18/24 12:25 Urine Urobilinogen 1.0 mg/dL (Negative) 06/18/24 12:25 Ur Leukocyte Esterase Negative (Negative) 06/18/24 12:25 Urine RBC 0-2 /hpf (0-2) 06/18/24 12:25 Urine WBC 0-5 /hpf (0-5) 06/18/24 12:25 Ur Squamous Epith Cells 0-5 /hpf (0-5) 06/18/24 12:25 Amorphous Sediment Not Reportable 06/18/24 12:25 Urine Bacteria None seen /hpf (NONE) 06/18/24 12:25 Hyaline Casts 0.40 /lpf 06/18/24 12:25 Vitals Last Vital Signs Temp 97.7 F 06/19/24 03:41 Pulse 104 H 06/19/24 10:27 Resp 20 H 06/19/24 08:26 BP 138/102 06/19/24 10:27 Pulse Ox 97 06/19/24 10:27 O2 Del Method Room Air 06/19/24 10:27 Discharge Plan Discharge Patient Disposition: Home Condition: Stable Prescriptions: New amiodarone [Pacerone] 200 mg Tablet See Rx Instructions .ROUTE .COMPLEX Qty: 60 0RF Rx Instructions: 400mg (2tabs) twice daily for 7 days, then 1 tab twice daily for 7 days, then 1 tab daily thereafter hydralazine 50 mg Tablet 50 mg PO Q12H 30 Days Qty: 60 0RF Continued omeprazole 20 mg capsule,delayed release(DR/EC) 20 mg PO QAM Eliquis 5 mg tablet 5 mg PO BID Qty: 180 3RF metoprolol tartrate 100 mg tablet See Rx Instructions .ROUTE .COMPLEX Qty: 150 5RF Rx Instructions: 250mg (2&1/2 tab) po 200mg in AM and 50mg in PM losartan 25 mg Tablet 25 mg PO DAILY rosuvastatin 20 mg Tablet 20 mg PO DAILY Changed tamsulosin 0.4 mg capsule 0.4 mg PO BID 30 Days Qty: 60 0RF Discharge Orders: Discharge Order (Routine); Ordered 06/19/24 Ordered By: Duy Chong Referrals: Leeanna Mehta FNP [Primary Care Provider] - Discharge Diet: Cardiac Discharge Activity: Resume usual activity Patient Instructions: Opioid Safety Activity Restrictions/Additional Instructions: - Please monitor heart rate closely, monitor blood pressure -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
[2024-06-19] MEDS: losartan 50 mg Tablet PO (11:02)
--- NOTE | 2024-06-19 13:57 | PC.NURSE ---
Discharge Note Patient discharged to home via private vehicle accompanied by . Discharge instructions reviewed with patient and/or underwriting service representative. Mobile pharmacy medications and/or prescriptions provided. Belongings/home medications returned.
== END 2024-06-19 13:32 | disposition home or self-care (01) | DRG 310 ==
LOC: ER 09:45 → CSU 09:50
PROVIDERS: Admitting Provider Family Medicine; Emergency Provider Family Medicine; PCP Nurse Practitioner; Visit Provider Family Medicine
DX: I48.91 Unspecified atrial fibrillation (principal); I10 Essential (primary) hypertension; E78.5 Hyperlipidemia, unspecified; F41.9 Anxiety disorder, unspecified; N40.0 Benign prostatic hyperplasia without lower urinary tract symptoms; K21.9 Gastro-esophageal reflux disease without esophagitis; G47.00 Insomnia, unspecified; R07.9 Chest pain, unspecified; Z79.01 Long term (current) use of anticoagulants; Z87.891 Personal history of nicotine dependence
CPT/HCPCS: 36415; 71045; 80048; 80053; 81003; 81015; 83036; 83735; 83880; 84443; 84484; 85025; 85610; 93005; 93306; 94664; 96365; 96366; 96375; 96376; 99285; A4222; A9270; J0283; J2470; J3490

== ENCOUNTER → 2024-08-10 09:24 | Outpatient (BNVA) | payer OTHER, SELFPAY | PROVIDERS: PCP Nurse Practitioner; Referring Provider Nurse Practitioner; Visit Provider Surgery | DX: K21.9 Gastro-esophageal reflux disease without esophagitis (principal); Z12.11 Encounter for screening for malignant neoplasm of colon | CPT/HCPCS: 99204 ==

== ENCOUNTER 2024-09-15 06:51 | Day surgery (SDC) | payer OTHER, SELFPAY ==
--- NOTE | 2024-09-15 05:53 | W.PM.OPSFHP ---
Same Day Surgery H&P Indication for Procedure/HPI DATE OF PROCEDURE: September 15, 2024 CHIEF COMPLAINT/INDICATIONFOR SURGICAL PROCEDURE: need for screening colonoscopy PREOP DIAGNOSIS: need for screening colonoscopy PLANNED PROCEDURE: Operation Date: 09/15/24 08:20 Proposed Procedures p Colonoscopy 65901, G0105, Z12.11(Not Applicable) - Morteza Diaz MD Medications/Allergies* Home Medications Medication Instructions Recorded Confirmed Type omeprazole 20 mg capsule,delayed 20 mg PO QAM 12/29/19 09/12/24 History release losartan 25 mg tablet 25 mg PO DAILY 06/18/24 09/12/24 History rosuvastatin 20 mg tablet 20 mg PO DAILY 06/18/24 09/12/24 History hydrocodone 5 mg-acetaminophen 325 1 tab PO BID PRN Pain 08/10/24 09/12/24 History mg tablet aspirin 81 mg capsule 81 mg PO DAILY 09/12/24 09/12/24 History digoxin 125 mcg (0.125 mg) tablet 125 mcg PO DAILY 09/12/24 09/12/24 History isosorbide mononitrate 30 mg 30 mg PO QAM 09/12/24 09/12/24 History tablet,extended release 24 hr metoprolol succinate 100 mg 100 mg PO DAILY 09/12/24 09/12/24 History tablet,extended release 24 hr Allergies/Adverse Reactions Allergy/AdvReac Type Severity Reaction Status Date / Time amlodipine Allergy Severe ALGY-Swell Verified 08/10/24 09:26 Lip/Tongue/Throat lisinopril Allergy Severe ALGY-Swell Verified 08/10/24 09:26 Lip/Tongue/Throat Pertinent History/Comorbid Conditions* Medical History (Updated 08/10/24 @ 10:14 by Morteza Diaz MD) Atrial fibrillation Palpitations Benign essential hypertension with target blood pressure below 140/90 Bilateral carotid artery stenosis Hyperlipidemia Anxiety BPH (benign prostatic hyperplasia) GERD (gastroesophageal reflux disease) Insomnia Surgical History (Updated 03/15/20 @ 11:25 by Daina Carter MD) H/O hernia repair Family History (Updated 11/26/21 @ 11:37 by Lenore Yost RN) Cancer Sister Hypertension Denies family history of Diabetes CAD (coronary artery disease) Clotting disorder Dementia Chronic kidney disease (CKD) Suicide Anesthesia complication Bleeding disorder Lung disease Stroke Social History Smoking and tobacco/nicotine status: former use of tobacco/nicotine Quit status (tobacco/nicotine): has quit using Year quit tobacco: 1999 Alcohol intake: never Substance/Drug Use: current Pertinent Exam Findings alert, oriented x 3, clear to auscultation bilaterally, regular rate & rhythm and operative site marked Recommendations Surgery/Procedure today Coding Level of Care Code Acute Code for [facility]
[2024-09-15 07:15] VITALS: BP 152/106; PULSE 110; RESP 18; TEMP 36.7; O2SAT 96; BMI 26.4
[2024-09-15] MEDS: sodium chloride 0.9% 1,000 ML 30 ML IV (07:19)
--- NOTE | 2024-09-15 07:42 | ANES.PREANE2 ---
Pre-Anesthetic Assessment Height/Weight: Height 1.8 m Weight 86.183 kg Temp Pulse Resp BP Pulse Ox O2 Del Method 98.1 F 110 H 18 152/106 96 Room Air 09/15/24 07:15 09/15/24 07:15 09/15/24 07:15 09/15/24 07:15 09/15/24 07:15 09/15/24 07:15 Preop Diagnosis: need for screening colonoscopy Operation Date: 09/15/24 08:20 Proposed Procedures p Colonoscopy 60665, G0105, Z12.11(Not Applicable) - Morteza Diaz MD Familial anesthetic complications: PONV Was Beta Komal taken within 24 hours: Yes Was Clonidine taken within 24 hours: N/A Last intake: Intake Last Liquid Date 09/14/24 Last Liquid Time 21:00 Last Solid Date 09/13/24 Last Solid Time 16:00 Social No alcohol and No tobacco marijuana occasionally Exam alert, oriented x 3, clear to auscultation bilaterally and regular rate & rhythm Airway Submandibular: within normal limits Cervical ROM: within normal limits Mallampati: Class II Dentition: false Pulmonary Chronic Obstructive Pulmonary Disease and Exertional Dyspnea CV/HEM Atrial Fibrillation and Hypertension kidney masses Hepatic None reported GI Gastroesophageal Reflux Disease Metabolic Hyperlipidemia [facility] [place] Osteoarthritis/DJD Neuropsych Anxiety Anesthetic Plan ASA status: 3 Anesthesia: MAC Risk of > 500 ml blood loss (7ml/kg in children): No Medications/Allergies Home Medications Medication Instructions Recorded Confirmed Last Taken Type omeprazole 20 mg capsule,delayed 20 mg PO QAM 12/29/19 09/12/24 09/14/24 History release apixaban 5 mg tablet (Eliquis) 5 mg PO BID New onset Afib #180 05/05/22 09/12/24 09/12/24 Rx tabs losartan 25 mg tablet 25 mg PO DAILY 06/18/24 09/12/24 09/12/24 History rosuvastatin 20 mg tablet 20 mg PO DAILY 06/18/24 09/12/24 09/14/24 History tamsulosin 0.4 mg capsule 0.4 mg PO BID 30 days #60 caps 06/19/24 09/12/24 09/14/24 Rx hydrocodone 5 mg-acetaminophen 325 1 tab PO BID PRN Pain 08/10/24 09/12/24 09/12/24 History mg tablet aspirin 81 mg capsule 81 mg PO DAILY 09/12/24 09/12/24 09/14/24 History digoxin 125 mcg (0.125 mg) tablet 125 mcg PO DAILY 09/12/24 09/12/24 09/15/24 04:30 History isosorbide mononitrate 30 mg 30 mg PO QAM 09/12/24 09/12/24 09/15/24 04:30 History tablet,extended release 24 hr metoprolol succinate 100 mg 100 mg PO DAILY 09/12/24 09/12/24 09/15/24 04:30 History tablet,extended release 24 hr Allergies Allergy/AdvReac Type Severity Reaction Status Date / Time amlodipine Allergy Severe ALGY-Swell Verified 08/10/24 09:26 Lip/Tongue/Throat lisinopril Allergy Severe ALGY-Swell Verified 08/10/24 09:26 Lip/Tongue/Throat Current Medications Generic Name Dose Route Start Last Admin Trade Name Freq PRN Reason Stop Dose Admin Sodium Chloride 1,000 mls @ 30 mls/hr 09/15/24 07:00 09/15/24 07:19 Sodium Chloride 0.9% IV 09/16/24 06:59 30 mls/hr .Q24H SHANIQUE Administration PFSH Anesthesia Medical History Atrial fibrillation Palpitations Benign essential hypertension with target blood pressure below 140/90 Bilateral carotid artery stenosis Hyperlipidemia Anxiety BPH (benign prostatic hyperplasia) GERD (gastroesophageal reflux disease) Insomnia Surgical History H/O hernia repair Family History Sister Cancer Other Hypertension Denies family history of Diabetes CAD (coronary artery disease) Clotting disorder Dementia Chronic kidney disease (CKD) Suicide Anesthesia complication Bleeding disorder Lung disease Stroke Social History Smoking and tobacco/nicotine status: former use of tobacco/nicotine Quit status (tobacco/nicotine): has quit using Year quit tobacco: 1999 Alcohol intake: never Substance/Drug Use: current Data Anesthesia Cardiac Studies: Echocardiogram 06/19/24 Cardiac Event Monitor 08/13/21
[2024-09-15 08:47] VITALS: BP 105/66; PULSE 64; RESP 12; TEMP 36.4; O2SAT 99
[2024-09-15 09:02] VITALS: BP 138/77; PULSE 82; RESP 16; O2SAT 94
--- NOTE | 2024-09-15 09:25 | ANE.PACU2 ---
Inpatient post-anesthesia follow up: Airway intact: Yes Vital signs: Temperature 97.6 F Pulse Rate 82 Respiratory Rate 16 Blood Pressure 138/77 Pulse Oximetry 94 Oxygen Delivery Me thod Room Air Oxygen Flow Rate Fraction of Inspir ed Oxygen Hydration adequate: Yes Nausea and vomiting: No Pain level: 1 Mental status: Baseline
== END 2024-09-15 09:27 | disposition home or self-care (01) ==
PROVIDERS: PCP Nurse Practitioner; Visit Provider Surgery
PROC: 0DJD8ZZ Inspection of Lower Intestinal Tract, Via Natural or Artificial Opening Endoscopic (ICD-10-PCS; CPT 45378; principal; 2024-09-15 08:20)
DX: Z12.11 Encounter for screening for malignant neoplasm of colon (principal); D12.2 Benign neoplasm of ascending colon; D12.4 Benign neoplasm of descending colon; D12.3 Benign neoplasm of transverse colon; D12.8 Benign neoplasm of rectum; I48.91 Unspecified atrial fibrillation; I10 Essential (primary) hypertension; E78.5 Hyperlipidemia, unspecified; F41.9 Anxiety disorder, unspecified; N40.0 Benign prostatic hyperplasia without lower urinary tract symptoms; K21.9 Gastro-esophageal reflux disease without esophagitis; Z87.891 Personal history of nicotine dependence; Z79.82 Long term (current) use of aspirin
CPT/HCPCS: 45380; 45385; 88305; J1100; J2405; J2704; J7030

== ENCOUNTER → 2024-09-28 08:12 | Outpatient (BNVA) | payer OTHER, SELFPAY | PROVIDERS: PCP Nurse Practitioner; Visit Provider Surgery | DX: Z09 Encounter for follow-up examination after completed treatment for conditions other than malignant neoplasm (principal); R03.0 Elevated blood-pressure reading, without diagnosis of hypertension | CPT/HCPCS: 99214 ==

== ENCOUNTER 2025-01-27 08:14 | Outpatient (CLI) | payer OTHER, SELFPAY ==
--- NOTE | 2025-01-27 08:22 | USCV_ITS ---
Martha Cassius Age: 69 Gender: M : 1955 Exam Date: 01/27/2025 08:43 Ordering Phys: Leeanna Mehta Technologist: Kingsley Johnson [place]am [place] [facility] [place]: screening HISTORY: Diameter (cm) AP x Transverse x Length Velocity (cm/s) Waveform Prox Aorta: 2.52 x 2.42 x 56.30 Mid Aorta: 1.79 x 1.89 x 69.70 Distal Aorta: 2.36 x 2.30 x 72.90 Right Iliac Prox: 0.91 x 0.85 x 143.80 Left Iliac Prox: 0.91 x 1.07 x 136.40 Stent Prox Landing x x Aneurysmal Sac Max x x Lt Lat Sac Dim Rt Lat Sac Dim Stent Dist Landing x x Right Iliac Stent x x Left Iliac Stent x x Right Renal Art Left Renal Art FINDINGS: CONCLUSIONS No evidence of abdominal aortic or bilateral iliac aneurysm. Mild to moderate atheromatous disease Michael Wadsworth MD (Electronically Signed) Final Date: 27 January 2025 11:56 S
== END 2025-01-27 08:15 | disposition home or self-care (01) ==
LOC: RAD 08:16
PROVIDERS: PCP Nurse Practitioner; Visit Provider Nurse Practitioner
DX: Z01.89 Encounter for other specified special examinations (principal); I70.90 Unspecified atherosclerosis
CPT/HCPCS: 76706